=== PATIENT | male | born 1955 | race Caucasian/White ===

== ENCOUNTER 2019-02-17 16:07 | Emergency (ER) | payer MEDICAID ==
[2019-02-17] MEDS ORDERED: Cephalexin 250 MG Cap PO ONE (17:22)
[2019-02-17] MEDS ORDERED: Acetaminophen 500 MG Tab PO ONE (17:29)
--- NOTE | 2019-02-17 17:30 | EDM.PDOC ---
ED HPI GENERAL MEDICAL PROBLEM - General Chief Complaint: General Stated Complaint: POSSIBLE INFECTION Time Seen by Provider: 02/17/19 17:15 Source of Information: Reports: Patient, Old Records, RN History Limitations: Reports: No Limitations - History of Present Illness INITIAL COMMENTS - FREE TEXT/NARRATIVE: 63 yo male had recent back surgery in [place]. He was discharged on Monday from that hospital and his drain was removed at the time of his discharge. He has been running a tempt of about 99F over the weekend, thinks the area where his drain was is a little more tender than before and the drainage has possibly increased since discharge instead of slowing down. They called [place] today and were told to come to the ER. Has oxycodone for pain. Onset: Gradual Onset Date: 02/15/19 Duration: Day(s):, Getting Worse Location: Reports: Back (L low back) Quality: Reports: Other (tenderness) Severity: Moderate Improves with: Reports: Medication Worsens with: Reports: Other (touching area) Context: Reports: Other (see HPI) Associated Symptoms: Reports: No Other Symptoms Treatments COMMUNITY DEVELOPMENT DIRECTOR: Reports: Other (see below) (oxycodone) Lower Back Pain Score (Numeric/FACES): 7 - Related Data Allergies Allergy/AdvReac Type Severity Reaction Status Date / Time No Known Allergies Allergy Verified 11/09/18 10:51 Home Meds: Home Meds Cyclobenzaprine [Flexeril] 5 mg PO TID PRN 11/12/18 [History] Finasteride [Proscar] 5 mg PO DAILY 11/12/18 [History] Ibuprofen 800 mg PO TID PRN 11/12/18 [History] Pregabalin [Lyrica] 10 mg PO BID 11/12/18 [History] Tamsulosin HCl [Flomax] 0.4 mg PO DAILY 11/12/18 [History] Zolpidem [Ambien] 5 mg PO DAILY PRN 11/12/18 [History] oxyCODONE 10 mg PO TID 11/12/18 [History] Cephalexin [Keflex] 500 mg PO Q6H #30 capsule 02/17/19 [Rx] Past Medical History HEENT History: Reports: Impaired Vision - Infectious Disease History Infectious Disease History: Reports: Chicken Pox - Past Surgical History GI Surgical History: Reports: Appendectomy Musculoskeletal Surgical History: Reports: Shoulder Surgery, Other (See Below) Other Musculoskeletal Surgeries/Procedures:: wrist surgery and back fusion Social & Family History - Tobacco Use Smoking Status *Q: Never Smoker - Caffeine Use Caffeine Use: Reports: Coffee, Soda, Tea - Recreational Drug Use Recreational Drug Use: No ED ROS GENERAL - Review of Systems Review Of Systems: See Below Constitutional: Reports: No Symptoms Skin: Reports: Other (tenderness locally, has yellow drainage from wound site. ) . Denies: Erythema Neurological: Reports: No Symptoms Psychiatric: Reports: No Symptoms ED EXAM, GENERAL - Physical Exam Exam: See Below Exam Limited By: No Limitations General Appearance: Alert, WD/WN, No Apparent Distress Neurological: Alert, Oriented, CN II-XII Intact, Normal Cognition, No Motor/ Sensory Deficits Psychiatric: Normal Affect, Normal Mood Skin Exam: Warm, Dry, Normal Color, No Rash, Increased Warmth (slight increased warmth locally, no redness, serous yellow drainage from site. ) Course - Vital Signs Text/Narrative:: Wound culture obtained of surgical wound drainage. Last Recorded V/S: Last Vital Signs Temp 37.2 C 02/17/19 16:46 Pulse 81 02/17/19 16:46 Resp 14 02/17/19 16:46 BP 137/68 02/17/19 16:46 Pulse Ox 94 L 02/17/19 16:46 - Orders/Labs/Meds Orders: Active Orders 24 hr Category Date Time Status CULTURE WOUND + SMEAR [RM] Stat Lab 02/17/19 17:22 Ordered Meds: Medications Discontinued Medications Generic Name Dose Route Start Last Admin Trade Name Freq PRN Reason Stop Dose Admin Cephalexin 1,000 mg 02/17/19 17:22 Keflex PO 02/17/19 17:23 ONETIME ONE Departure - Departure Time of Disposition: 17:35 Disposition: Home, Self-Care 01 Condition: Fair Clinical Impression: Increased wound drainage - Discharge Information *PRESCRIPTION DRUG MONITORING PROGRAM REVIEWED*: No *COPY OF PRESCRIPTION DRUG MONITORING REPORT IN PATIENT [place]YATT: No Prescriptions: Cephalexin [Keflex] 500 mg PO Q6H #30 capsule Referrals: PCP,None [Primary Care Provider] - Additional Instructions: Take cephalexin as directed. Acetaminophen up to 1000 mg every 6 hrs for pain/ fever control. Change dressings as needed. F/U in the clinic on Monday to review your culture. Return or see your provider sooner if worse. - My Orders Last 24 Hours: My Active Orders 02/17/19 17:22 CULTURE WOUND + SMEAR [RM] Stat - Assessment/Plan Last 24 Hours: My Active Orders 02/17/19 17:22 CULTURE WOUND + SMEAR [RM] Stat
== END 2019-02-17 17:58 | disposition home or self-care (01) ==
LOC: JP.ED 16:07
DX: T81.89XA Other complications of procedures, not elsewhere classified, initial encounter (principal); Y83.8 Other surgical procedures as the cause of abnormal reaction of the patient, or of later complication, without mention of misadventure at the time of the procedure
CPT/HCPCS: 87070; 87205; 99283; A9270

== ENCOUNTER 2020-07-24 14:15 | Inpatient (IN) | payer MEDICARE, MEDICAID ==
[2020-07-24] MEDS ORDERED: Sodium Chloride 0.9% 10 ML Syringe FLUSH PRN (14:53)
[2020-07-24] MEDS ORDERED: Ondansetron 4 MG/2 ML SDV IV PRN (14:53)
[2020-07-24] MEDS ORDERED: Zolpidem 5 MG Tab PO PRN (14:57)
[2020-07-24] MEDS ORDERED: Piperacillin/Tazobactam 3.375 GM in Sodium Chloride 0.9% 50 ML IV SCH (15:00)
--- NOTE | 2020-07-24 15:03 | PCM.SN.2 ---
- Free Text/Narrative Note: START OF DOCTOR ELIMITino HISTORY AND PHYSICAL / CONSULTATION NOTE Chief Complaint: Direct admission for left thigh cellulitis/abscess History of Present Illness: The patient is a 65-year-old male who was admitted directly from the surgeon's office because of left thigh cellulitis/abscess. He indicates approximately 6 days prior to admission he developed what appeared to be irritation of his left lateral thigh. He states it resembled a spider bite. He states that he saw his primary care physician or provider 3 days prior to admission who referred him to the surgeon for further evaluation. On his day of July 24, 2020 the patient was seen by the surgeon referred for direct admission. The patient indicates that there is been green discharge from the nidus of the infection. He indicates that there is spreading erythema both proximally and distally of the left thigh. He admits to onset of fever and rigors. Denies nausea, vomiting, cough, wheeze, abdominal pain, diarrhea, myalgia, dyspnea. He presents for further evaluation Surgical History: Appendectomy, back fusion, right wrist surgery, left wrist surgery, left shoulder surgery, right shoulder surgery Family History: Cancer, stroke, diabetes, coronary artery disease, hypertension Social History: Tobacco: Former smoker Alcohol: Occasional Caffeine: Coffee, tea, cola Drugs: Past marijuana use. Denies any other drug use past or present Allergies: No known drug allergies Code Status: Full Pertinent Laboratory Results / Pertinent Radiology Results / Pertinent Diagnostic Results / Pertinent Vital Signs: Blood pressure 125/59, pulse 70, respiration 20, temperature 90.1 degrees, 9 6% room air. Labs have been ordered and are currently pending Physical Examination: General: -Alert -No acute distress -No dyspnea -No tachypnea -edentulous Head: -Atraumatic -Normocephalic Eyes: -Pupils equally round and reactive to light and accommodation -Extraocular muscles intact Neurological: -Cranial nerves II-XII intact Neck: -No jugular venous distention -No thyromegaly -No cervical lymphadenopathy Heart: -Regular rate -Regular rhythm -No murmurs -No gallops -No rubs Lungs: -No wheeze -No rhonchi -No rales Abdomen: -Normal bowel sounds in all four quadrants -No rebound -No guarding -No tenderness Extremities: -2/4 pulse in all four extremities -No clubbing -No cyanosis -No calf tenderness present bilaterally -Negative Homans sign bilaterally Musculoskeletal: -5/5 bilateral upper extremity strength -5/5 bilateral lower extremity strength -Sensorium of bilateral upper extremities are equal and intact -Sensorium of bilateral lower extremities are equal and intact Additional Details / Additional Findings / Exceptions / Miscellaneous: Inspection of the left lateral thigh demonstrates erythema both proximally and medially and circumferentially. There is a nidus of infection which is indurated. At the present time there is no drainage Assessment / Plan: Left lateral thigh cellulitis. Vancomycin 1 g IV every 12 hours to be dosed by pharmacy Po Zosyn 3.375 g IV every 6 hours. We will demarcate date the margin of erythema daily. Will check CT with IV contrast. If abscess is demonstrated, I will request that surgery evaluate the patient for possible I&D Neuropathy Insomnia BPH. Finasteride 5 mg p.o. daily plus Flomax 0.4 mg p.o. daily Muscle spasm Chronic pain. Oxycodone 10 mg p.o. 3 times daily Seasonal allergies COPD GERD DVT prophylaxis. Bilateral CD Disposition: END OF DOCTOR EMAMIS HISTORY AND PHYSICAL / CONSULTATION NOTE
[2020-07-24] MEDS ORDERED: Piperacillin/Tazobactam/Dext 3.375 GM in Premix Bag 1 BAG IV SCH (15:30)
[2020-07-24] MEDS: oxyCODONE 5 MG Tab PO SCH ×2 (15:40→21:14)
[2020-07-24] MEDS: Albuterol 0.083% 2.5 MG/3 ML Neb Soln INH PRN ×2 (15:41→19:58)
[2020-07-24] MEDS: Acetaminophen 325 MG Tab PO PRN ×2 (15:41→21:14)
[2020-07-24] MEDS ORDERED: Sodium Chloride 0.9% 1,000 ML IV SCH (16:00)
[2020-07-24] MEDS ORDERED: Sodium Chloride 0.9% 10 ML Syringe FLUSH ONE (16:28)
[2020-07-24] MEDS ORDERED: Sodium Chloride 0.9% 75 ML IV SCH (16:30)
[2020-07-24] MEDS ORDERED: Iopamidol 612 MG/ML 100 ML Bottle IV SCH (16:30)
[2020-07-24] MEDS ORDERED: Vancomycin 1.3 GM in Sodium Chloride 0.9% 250 ML IV ONE (17:00)
[2020-07-24] MEDS: Potassium Chloride 20 MEQ Tab.ER PO SCH ×2 (17:02→18:30)
[2020-07-24] MEDS: Ferrous Sulfate 325 MG Tab PO SCH (17:53)
--- NOTE | 2020-07-24 18:24 | CRLCT ---
INDICATION: L thigh abscess/cellulitis INDICATION : Cellulitis of the left TECHNIQUE : CT Scan of the pelvis and lower extremities hips to knees.. 100 cc nonionic contrast IV COMPARISON : No comparison FINDINGS: Soft tissues: Left lower extremity: Focal area of swelling with convex bulging of the skin located about 12 cm above the joint line of the left knee. Skin thickening present. Anterior lateral and posterior lateral collections of intermediate attenuation possibly complex fluid very well-circumscribed measuring 17 x 39 mm and 3 cm in the long axis. This fluid is located in the subcutaneous tissues. No gas within the tissues. Cellulitis is present which extends to the level of the proximal by 30 cm cephalad from the joint line of the knee. Osseous structures and joint spaces: Symmetric medial compartment degenerative joint narrowing. No suspicious osseous lesions or acute fractures. Miscellaneous: The included lower abdomen and pelvis shows ectasia and plaque formation of the distal abdominal aorta AP diameter 2.5 cm. No masses or adenopathy. Bladder and prostate unremarkable. No suspicious lymph node enlargement. Posterior interspinous lumbar stabilization/metallic fixation device L4-L5. IMPRESSION: 1. Lateral left thigh cellulitis with focal areas of subcutaneous fluid. Although this does not demonstrate significant rim enhancement early abscess may not be totally excluded but this is limited to the subcutaneous superficial tissues. No involvement of the muscle or deep fascia. This could be better assessed with localized ultrasound and for possible diagnostic percutaneous fluid sampling. 2. Atherosclerotic changes aorta and iliac bifurcation. 3. Posterior lumbar spine instrumentation L4-L5. Dictated by Luis Foote MD @ 07/24/2020 6:23:49 PM Please note that all CT scans at this facility use dose modulation, iterative reconstruction, and/or weight-based dosing when appropriate to reduce radiation dose to as low as reasonably achievable. Dictated by: Luis Foote MD @ 07/24/2020 18:23:57 (Electronically Signed)
[2020-07-24] MEDS ORDERED: oxyCODONE 5 MG Tab PO SCH (21:00)
[2020-07-24] MEDS ORDERED: OXYCODONE 10 MG PO SCH (21:00)
[2020-07-24] MEDS: Piperacillin/Tazobactam/Dext 3.375 GM in Premix Bag 1 BAG IV SCH (22:58)
[2020-07-25] MEDS: Piperacillin/Tazobactam/Dext 3.375 GM in Premix Bag 1 BAG IV SCH ×4 (04:07→22:51)
[2020-07-25] MEDS: Acetaminophen 325 MG Tab PO PRN ×3 (04:19→21:07)
[2020-07-25] MEDS: Cyclobenzaprine 10 MG Tab PO PRN (04:20)
[2020-07-25] MEDS: oxyCODONE 5 MG Tab PO SCH ×3 (08:54→21:07)
[2020-07-25] MEDS: Ascorbic Acid 500 MG Tab PO SCH (08:55)
[2020-07-25] MEDS: Tamsulosin 0.4 MG Cap.ER PO SCH (08:55)
[2020-07-25] MEDS: Ferrous Sulfate 325 MG Tab PO SCH ×2 (08:56→16:42)
[2020-07-25] MEDS: Finasteride 5 MG Tab PO SCH (08:56)
--- NOTE | 2020-07-25 09:58 | PCM.SN.2 ---
- Free Text/Narrative Note: START OF DOCTOR EMAMIS PROGRESS NOTE Subjective: Overnight the patient complains of occasional low-grade fever, rigors, and dyspnea. He denies cough, wheeze, abdominal pain, chest pain. He states that his left thigh pain has improved mildly however it is still present. I explained to the patient his current medical condition and plan of care and I have answered all of his questions Objective: General: -Alert -No acute distress -No dyspnea -No tachypnea Heart: -Regular rate -Regular rhythm -No murmurs -No gallops -No rubs Lungs: -Bilateral wheeze present -No rhonchi -No rales Abdomen: -Normal bowel sounds in all four quadrants -No rebound -No guarding -No tenderness Extremities: -2/4 pulse in all four extremities -No clubbing -No cyanosis -Inspection of the left lateral thigh demonstrates erythema, edema, warmth, and tenderness to palpation. The margin of erythema has receded compared to my examination on July 24, 2020. At the present time there is no drainage Additional Details / Additional Findings / Exceptions / Miscellaneous: Pertinent Laboratory Results / Pertinent Radiology Results / Pertinent D iagnostic Results / Pertinent Vital Signs: Patient saturating 90% on room air, white blood count 1.9, hemoglobin 9.7, AST 52, alkaline phosphatase 145 Assessment / Plan: Left lateral thigh cellulitis. Vancomycin 1 g IV every 12 hours to be dosed by pharmacy Po Zosyn 3.375 g IV every 6 hours. We will demarcate date the margin of erythema daily. CT of the left thigh did not demonstrate abscess, however I will request that surgery monitor the patient in case he may require I&D Neuropathy Insomnia BPH. Finasteride 5 mg p.o. daily plus Flomax 0.4 mg p.o. daily Muscle spasm Chronic pain. Oxycodone 10 mg p.o. 3 times daily Seasonal allergies COPD. DuoNeb every 4 hours while awake GERD Hypokalemia. Will monitor potassium levels intermittently and supplement as necessary Elevated alkaline phosphatase. We will monitor this periodically with LFTs. Iron deficiency anemia. Ferrous sulfate 325 mg p.o. twice daily plus vitamin C 500 mg p.o. daily DVT prophylaxis. Bilateral CD Disposition: Anticipate discharge in 72 to 96 hours END OF DOCTOR EMAMIS PROGRESS NOTE
[2020-07-25] MEDS: Albuterol/Ipratropium 3.0-0.5 MG/3 ML Neb Soln NEB SCH ×4 (10:43→22:49)
[2020-07-26] MEDS: Albuterol/Ipratropium 3.0-0.5 MG/3 ML Neb Soln NEB SCH ×6 (03:48→23:11)
[2020-07-26] MEDS: Piperacillin/Tazobactam/Dext 3.375 GM in Premix Bag 1 BAG IV SCH ×4 (04:00→22:32)
[2020-07-26] MEDS: Cyclobenzaprine 10 MG Tab PO PRN ×2 (04:05→11:05)
[2020-07-26] MEDS: Acetaminophen 325 MG Tab PO PRN ×3 (04:05→19:29)
--- NOTE | 2020-07-26 07:55 | PCM.SN.2 ---
- Free Text/Narrative Note: START OF DOCTOR ROCÍO PROGRESS NOTE Subjective: The patient complains of pain of the left thigh. He states may have improved somewhat compared to my encounter with him on July 25, 2020. He currently rates his left thigh pain as a 5 out of 10. Overnight he denies fever, rigors, nausea, vomiting, dyspnea. He states that his head is being occasional cough productive of clear sputum and occasional wheeze. I explained to the patient his current medical condition and plan of care and have answered all of his questions Objective: General: -Alert -No acute distress -No dyspnea -No tachypnea Heart: -Regular rate -Regular rhythm -No murmurs -No gallops -No rubs Lungs: -Bilateral wheeze present -No rhonchi -No rales Abdomen: -Normal bowel sounds in all four quadrants -No rebound -No guarding -No tenderness Extremities: -2/4 pulse in all four extremities -No clubbing -No cyanosis -Inspection of the left lateral thigh demonstrates erythema, edema, warmth, and tenderness to palpation. The margin of erythema has receded compared to my examination on July. At the present time there is no drainage Additional Details / Additional Findings / Exceptions / Miscellaneous: Pertinent Laboratory Results / Pertinent Radiology Results / Pertinent Diagnostic Results / Pertinent Vital Signs: Vital signs stable however patient had temperature max overnight of 100.3 degrees. Hemoglobin 10.9, AST 44, ALT 143 Assessment / Plan: Left lateral thigh cellulitis. Vancomycin 1 g IV every 12 hours to be dosed by pharmacy Po Zosyn 3.375 g IV every 6 hours. We will demarcate date the margin of erythema daily. CT of the left thigh did not demonstrate abscess, however I will request that surgery monitor the patient in case he may require I&D in the case had an abscess should form Neuropathy Insomnia BPH. Finasteride 5 mg p.o. daily plus Flomax 0.4 mg p.o. daily Muscle spasm Chronic pain. Oxycodone 10 mg p.o. 3 times daily Seasonal allergies COPD. DuoNeb every 4 hours while awake GERD Hypokalemia. Will monitor potassium levels intermittently and supplement as necessary Elevated alkaline phosphatase. We will monitor this periodically with LFTs. Iron deficiency anemia. Ferrous sulfate 325 mg p.o. twice daily plus vitamin C 500 mg p.o. daily DVT prophylaxis. Bilateral CD Disposition: Anticipate discharge in 72 to 96 hours END OF DOCTOR EMAMIS PROGRESS NOTE
[2020-07-26] MEDS: Finasteride 5 MG Tab PO SCH (08:02)
[2020-07-26] MEDS: Ascorbic Acid 500 MG Tab PO SCH (08:02)
[2020-07-26] MEDS: Tamsulosin 0.4 MG Cap.ER PO SCH (08:02)
[2020-07-26] MEDS: Ferrous Sulfate 325 MG Tab PO SCH ×2 (08:02→16:54)
[2020-07-26] MEDS: oxyCODONE 5 MG Tab PO SCH ×3 (08:03→21:03)
[2020-07-27] MEDS: Albuterol/Ipratropium 3.0-0.5 MG/3 ML Neb Soln NEB SCH ×5 (02:37→20:52)
[2020-07-27] MEDS: Acetaminophen 325 MG Tab PO PRN ×2 (02:38→19:37)
[2020-07-27] MEDS: Cyclobenzaprine 10 MG Tab PO PRN ×2 (02:42→19:37)
[2020-07-27] MEDS: HYDROmorphone 0.5 MG/0.5 ML Syringe IVPUSH PRN ×3 (03:43→11:42)
[2020-07-27] MEDS: Piperacillin/Tazobactam/Dext 3.375 GM in Premix Bag 1 BAG IV SCH ×4 (05:12→22:09)
[2020-07-27] MEDS: Ferrous Sulfate 325 MG Tab PO SCH ×2 (07:17→16:10)
[2020-07-27] MEDS ORDERED: Calcium Carbonate 500 MG Tab.Chew PO PRN (07:29)
[2020-07-27] MEDS: Calcium Carbonate 500 MG Tab.Chew PO PRN ×2 (08:49→17:00)
[2020-07-27] MEDS: Finasteride 5 MG Tab PO SCH (08:49)
[2020-07-27] MEDS: Tamsulosin 0.4 MG Cap.ER PO SCH (08:49)
[2020-07-27] MEDS: Ascorbic Acid 500 MG Tab PO SCH (08:49)
[2020-07-27] MEDS: oxyCODONE 5 MG Tab PO SCH ×3 (08:53→20:53)
--- NOTE | 2020-07-27 10:18 | PCM.PN ---
- General Info Date of Service: 07/27/20 Subjective Update: Patient reports ongoing difficulty with pain involving the left thigh. He describes a moderate to moderately severe pressure-like pain. It is better than at the time of admission but still fairly significant. He and his significant other think that the leg is more swollen and more discolored today than it has been. He did not have any fevers overnight. He does feel short of breath compared to baseline and is audibly wheezing. He did clean his chicken coop recently. Functional Status: Denies: Pain Controlled - Review of Systems General: Denies: Fever Pulmonary: Reports: Shortness of Breath Musculoskeletal: Reports: Leg Pain (left thigh) - Patient Data Vitals - Most Recent: Last Vital Signs Temp 35.3 C L 07/27/20 07:00 Pulse 75 07/27/20 07:00 Resp 16 07/27/20 07:00 BP 106/71 07/27/20 07:00 Pulse Ox 90 L 07/27/20 07:00 Weight - Most Recent: 65.317 kg I&O - Last 24 Hours: Intake & Output 07/26/20 07/27/20 07/27/20 22:59 06:59 14:59 Intake Total 50 900 Output Total 350 575 Balance -300 325 Lab Results Last 24 Hours: Laboratory Results - last 24 hr 07/27/20 Range/Units 04:30 Creatinine 0.9 (0.8-1.3) mg/dL Est Cr Clr Drug Dosing 69.43 mL/min Estimated GFR (MDRD) > 60 (>60) Vancomycin Trough 15.8 (10.0-20.0) ug/mL Lee Results Last 24 Hours: Microbiology 07/24/20 22:58 Stool Occult Blood (LEE) - Final Stool / Feces NEGATIVE OCCULT BLOOD REFERENCE RANGE: NEGATIVE Med Orders - Current: Current Medications Acetaminophen (Acetaminophen 325 Mg Tab) 650 mg PO Q4H PRN PRN Reason: Pain (Mild 1-3)/fever Last Admin: 07/27/20 02:38 Dose: 650 mg Documented by: Albuterol (Albuterol 0.083% 2.5 Mg/3 Ml Neb Soln) 2.5 mg INH Q4H PRN PRN Reason: Dyspnea Last Admin: 07/24/20 19:58 Dose: 2.5 mg Documented by: Albuterol/Ipratropium (Albuterol/Ipratropium 3.0-0.5 Mg/3 Ml Neb Soln) 3 ml NEB Q4H [facility] Last Admin: 07/27/20 07:12 Dose: 3 ml Documented by: Ascorbic Acid (Ascorbic Acid 500 Mg Tab) 500 mg PO DAILY [facility] Last Admin: 07/27/20 08:49 Dose: 500 mg Documented by: Calcium Carbonate/Glycine (Calcium Carbonate 500 Mg Tab.Chew) 1,000 mg PO Q2H PRN PRN Reason: Indigestion Last Admin: 07/27/20 08:49 Dose: 1,000 mg Documented by: Cyclobenzaprine HCl (Cyclobenzaprine 10 Mg Tab) 5 mg PO TID PRN PRN Reason: Spasms Last Admin: 07/27/20 02:42 Dose: 5 mg Documented by: Ferrous Sulfate (Ferrous Sulfate 325 Mg Tab) 325 mg PO BIDMEALS [facility] Last Admin: 07/27/20 07:17 Dose: 325 mg Documented by: Finasteride (Finasteride 5 Mg Tab) 5 mg PO DAILY [facility] Last Admin: 07/27/20 08:49 Dose: 5 mg Documented by: Hydromorphone HCl (Hydromorphone 0.5 Mg/0.5 Ml Syringe) 0.5 - 1 mg IVPUSH Q3H PRN PRN Reason: Pain Last Admin: 07/27/20 07:15 Dose: 0.5 mg Documented by: Vancomycin HCl 1 gm/ Sodium (Chloride) 250 mls @ 167 mls/hr IV Q12H [facility] Last Admin: 07/27/20 05:45 Dose: 167 mls/hr Documented by: Piperacillin/Tazobactam/ (Dextrose 3.375 gm/ Premix) 50 mls @ 100 mls/hr IV Q6H [facility] Last Admin: 07/27/20 05:12 Dose: 100 mls/hr Documented by: Ondansetron HCl (Ondansetron 4 Mg/2 Ml Sdv) 4 mg IV Q4H PRN PRN Reason: Nausea/Vomiting Oxycodone HCl (Oxycodone 5 Mg Tab) 10 mg PO TID [facility] Last Admin: 07/27/20 08:53 Dose: 10 mg Documented by: Sodium Chloride (Sodium Chloride 0.9% 10 Ml Syringe) 10 ml FLUSH ASDIRECTED PRN PRN Reason: Keep Vein Open Tamsulosin HCl (Tamsulosin 0.4 Mg Cap.Er) 0.4 mg PO DAILY [facility] Last Admin: 07/27/20 08:49 Dose: 0.4 mg Documented by: Zolpidem Tartrate (Zolpidem 5 Mg Tab) 5 mg PO BEDTIME PRN PRN Reason: Insomnia Discontinued Medications Piperacillin/Tazobactam/ (Dextrose 3.375 gm/ Premix) 50 mls @ 100 mls/hr IV Q6H [facility] Stop: 07/24/20 18:00 Last Admin: 07/24/20 17:02 Dose: 100 mls/hr Documented by: Sodium Chloride (Normal Saline) 1,000 mls @ 75 mls/hr IV ASDIRECTED [facility] Last Admin: 07/24/20 17:54 Dose: 75 mls/hr Documented by: Vancomycin HCl 1.3 gm/ Sodium (Chloride) 250 mls @ 167 mls/hr IV ONETIME ONE Stop: 07/24/20 18:29 Last Admin: 07/24/20 17:54 Dose: 167 mls/hr Documented by: Sodium Chloride (Normal Saline) 75 mls @ 3 mls/sec IV ASDIRECTED [facility] Stop: 07/24/20 16:31 Last Admin: 07/24/20 16:54 Dose: 3 mls/sec Documented by: Iopamidol (Iopamidol 612 Mg/Ml 100 Ml Bottle) 100 ml IV . DIRECTED [facility] Stop: 07/24/20 16:31 Last Admin: 07/24/20 16:54 Dose: 100 ml Documented by: Potassium Chloride (Potassium Chloride 20 Meq Tab.Er) 40 meq PO Q2H [facility] Stop: 07/24/20 18:01 Last Admin: 07/24/20 18:30 Dose: 40 meq Documented by: Sodium Chloride (Sodium Chloride 0.9% 10 Ml Syringe) 10 ml FLUSH ONETIME ONE Stop: 07/24/20 16:29 Last Admin: 07/24/20 16:54 Dose: 10 ml Documented by: - Exam Quality Assessment: No: Supplemental Oxygen General: Alert, Oriented, Cooperative, No Acute Distress Lungs: Normal Respiratory Effort, Rhonchi (diffuse both lungs), Wheezing (mild exp bilaterally ) Cardiovascular: Regular Rate, Regular Rhythm GI/Abdominal Exam: Soft, No Distention Extremities: No Pedal Edema. No: Joint Swelling Skin: Warm, Dry, Rash (erythema within marked boundaries left thigh. two areas of fluctuance in the center of the marked area, proximal area 4x10 cm and distal one 4x4 cm. ) Psy/Mental Status: Alert, Normal Affect - Patient Data Lab Results Last 24 hrs: Laboratory Results - last 24 hr 07/27/20 Range/Units 04:30 Creatinine 0.9 (0.8-1.3) mg/dL Est Cr Clr Drug Dosing 69.43 mL/min Estimated GFR (MDRD) > 60 (>60) Vancomycin Trough 15.8 (10.0-20.0) ug/mL Result Diagrams: 07/26/20 04:45 07/27/20 04:30 Lee Results Last 24 hrs: Microbiology 07/24/20 22:58 Stool Occult Blood (LEE) - Final Stool / Feces NEGATIVE OCCULT BLOOD REFERENCE RANGE: NEGATIVE Sepsis Event Note - Evaluation Sepsis Screening Result: No Definite Risk - Focused Exam Vital Signs: Vital Signs Temp Pulse Resp BP Pulse Ox 07/27/20 07:00 35.3 C L 75 16 106/71 90 L 07/27/20 03:55 37.1 C 73 18 115/57 L 95 07/26/20 22:19 37.5 C 78 16 132/72 95 - Problem List Review Problem List Initiated/Reviewed/Updated: Yes - My Orders Last 24 Hours: My Active Orders 07/27/20 07:30 Calcium Carbonate [Tums] 1,000 mg PO Q2H PRN 07/27/20 10:12 CXR [Chest 2V] [CR] Routine 07/27/20 10:14 Notify Provider Consults [RC] ASDIRECTED Consult to Physician [CONS] Routine 07/27/20 16:00 Albuterol/Ipratropium [DuoNeb 3.0-0.5 MG/3 ML] 3 ml NEB QID 07/27/20 21:00 Lactobacillus Rhamnosus GG [Culturelle] 1 cap PO BID 07/28/20 05:00 BASIC METABOLIC PANEL,BMP [CHEM] Timed CBC W/O DIFF,HEMOGRAM [HEME] Timed (1) - Plan Plan:: ASSESSMENT AND PLAN - Left thigh abscess and cellulitis-patient thinks he had an insect bite leading to the infection about 1 week ago. Area of fluctuance quite apparent today despite negative imaging over the weekend. No evidence for sepsis at this time. -Surgical consultation for incision and debridement of left thigh abscess -Continue vancomycin and Pip/Tazo -Follow-up cultures and narrow antibiotics as able -Symptomatic management of pain -Wound care following incision and debridement Increased dyspnea, history of COPD-patient has coarse breath sounds. He is not hypoxic but does feel short of breath. Could be bronchitis, either bacterial or environmental. -Chest x-ray -Consider steroids plus or minus pulmonary antibiotics -Continue inhalers and nebulizers Chronic back pain-stable. -Continue home medications Maintenance issues - -DVT prophylaxis-mechanical -GI prophylaxis-not indicated -Nutrition-regular Disposition -I anticipate discharge home after the hospital stay Fermín Talbot M.D.
[2020-07-27] MEDS ORDERED: Lidocaine 1% with EPINEPHrine 1:100,000 50 ML MDV INFILT ONE (10:50)
--- NOTE | 2020-07-27 13:36 | OR ---
DATE OF PROCEDURE: 07/27/2020 SURGEON: Daljit Smith MD PROCEDURE: Incision and drainage of left thigh abscess. FINDINGS: Left thigh abscess, approximately 30 mL in volume. COMPLICATION: None. WELL SERVICE DERRICK WORKER: None. ANESTHESIA: Local. RISKS: Risks, benefits, alternatives, and limitations including, but not limited to infection, bleeding, sepsis, chronic wound, chronic pain, and other risks not listed here were explained to the patient who wished to proceed. PROCEDURE IN DETAIL: The patient was placed in supine position. The area was prepped and draped. Betadine towels were used to square off. This was then anesthetized with 1% lidocaine. A single debbie was created in the skin. Fozia clamp was used to enlarge this and a moderate amount of purulent material was noted. This was cultured. This was thoroughly irrigated with normal saline. Quarter-inch packing was placed. Nurse was instructed to remove it in 48 hours. The patient tolerated the procedure well. Daljit Smith MD /[id number]
--- NOTE | 2020-07-27 14:14 | CR ---
CHEST: 2 view CLINICAL HISTORY:Wheezing COMPARISON:None FINDINGS: Heart size and pulmonary vascular are normal. There are atherosclerotic changes in the aorta.. No infiltrate, effusion or pneumothorax is seen. There are scattered small well-circumscribed nodules in both lungs. Impression: Scattered small pulmonary nodules bilaterally. These likely represent granulomata but noncontrast CT chest is recommended if these have not been previously documented.
--- NOTE | 2020-07-27 15:17 | CT ---
Chest wo Cont CLINICAL HISTORY: Pulmonary nodules TECHNIQUE: Thin section axial contiguous tomographic sections were taken through the chest without IV iodinated contrast administration. Coronal and sagittal images were reconstructed. Auto dosage reduction and iterative reconstruction techniques employed. FINDINGS: There is minimal scarring in the right apex. There are innumerable scattered densely calcified pulmonary nodules in both lung haley, greater on the right. These are consistent with multiple granulomata. There are a few scattered groundglass opacities in the upper lobes. No mediastinal mass or suspicious lymphadenopathy is identified. There are no pleural effusions. Scans in the upper abdomen show no mass or adenopathy. There are atherosclerotic changes in the aorta. IMPRESSION: Numerous small granulomata bilaterally No suspicious pulmonary nodules No mass or adenopathy There are a few scattered groundglass opacities in both upper lobes. This can be seen with pneumonitis Scattered pleural parenchymal scarring
[2020-07-27] MEDS ORDERED: Albuterol/Ipratropium 3.0-0.5 MG/3 ML Neb Soln NEB SCH (16:00)
[2020-07-27] MEDS: Albuterol 0.083% 2.5 MG/3 ML Neb Soln INH PRN (19:37)
[2020-07-27] MEDS: Lactobacillus Rhamnosus GG (Probiotic) Cap PO SCH (20:52)
[2020-07-28] MEDS: Piperacillin/Tazobactam/Dext 3.375 GM in Premix Bag 1 BAG IV SCH ×2 (04:14→11:27)
[2020-07-28] MEDS: Albuterol/Ipratropium 3.0-0.5 MG/3 ML Neb Soln NEB SCH ×4 (07:21→21:30)
[2020-07-28] MEDS: Ferrous Sulfate 325 MG Tab PO SCH ×2 (08:18→17:02)
[2020-07-28] MEDS: Finasteride 5 MG Tab PO SCH (08:18)
[2020-07-28] MEDS: Tamsulosin 0.4 MG Cap.ER PO SCH (08:18)
[2020-07-28] MEDS: Lactobacillus Rhamnosus GG (Probiotic) Cap PO SCH ×2 (08:18→21:30)
[2020-07-28] MEDS: Ascorbic Acid 500 MG Tab PO SCH (08:18)
[2020-07-28] MEDS: oxyCODONE 5 MG Tab PO SCH ×3 (08:24→21:30)
--- NOTE | 2020-07-28 11:35 | PCM.PN ---
- General Info Date of Service: 07/28/20 Subjective Update: There were no acute events overnight. Patient did not have any fevers. Pain in his left thigh has improved since the incision and debridement yesterday. Chron ic back pain is stable. Shortness of breath has improved and he is wheezing less today. Wound culture from yesterday is growing a gram-positive cocci with identification pending. White count is normal. Functional Status: Reports: Pain Controlled, Tolerating Diet - Review of Systems General: Denies: Fever Musculoskeletal: Reports: Leg Pain - Patient Data Vitals - Most Recent: Last Vital Signs Temp 36.6 C 07/28/20 11:27 Pulse 77 07/28/20 11:27 Resp 18 07/28/20 11:27 BP 136/71 07/28/20 11:27 Pulse Ox 91 L 07/28/20 11:27 Weight - Most Recent: 65.317 kg I&O - Last 24 Hours: Intake & Output 07/27/20 07/28/20 07/28/20 22:59 06:59 14:59 Intake Total 480 1300 300 Output Total 750 550 Balance -270 1300 -250 Lab Results Last 24 Hours: Laboratory Results - last 24 hr 07/28/20 07/28/20 Range/Units 04:05 04:05 WBC 8.5 (4.5-11.0) K/uL RBC 3.70 L (4.30-5.90) M/uL Hgb 10.5 L (12.0-15.0) g/dL Hct 33.3 L (40.0-54.0) % MCV 90 (80-98) fL MCH 28 (27-31) pg MCHC 32 (32-36) % Plt Count 304 (150-400) K/uL Sodium 143 (140-148) mmol/L Potassium 4.2 (3.6-5.2) mmol/L Chloride 103 (100-108) mmol/L Carbon Dioxide 27 (21-32) mmol/L Anion Gap 13.1 (5.0-14.0) mmol/L BUN 9 (7-18) mg/dL Creatinine 0.9 (0.8-1.3) mg/dL Est Cr Clr Drug Dosing 69.90 mL/min Estimated GFR (MDRD) > 60 (>60) Glucose 96 (74-106) mg/dL Calcium 9.0 (8.5-10.1) mg/dL Lee Results Last 24 Hours: Microbiology 07/27/20 11:40 Gram Stain - Final Leg, Left Wound Culture - Preliminary Med Orders - Current: Current Medications Acetaminophen (Acetaminophen 325 Mg Tab) 650 mg PO Q4H PRN PRN Reason: Pain (Mild 1-3)/fever Last Admin: 07/27/20 19:37 Dose: 650 mg Documented by: Albuterol (Albuterol 0.083% 2.5 Mg/3 Ml Neb Soln) 2.5 mg INH Q4H PRN PRN Reason: Dyspnea Last Admin: 07/27/20 19:37 Dose: 2.5 mg Documented by: Albuterol/Ipratropium (Albuterol/Ipratropium 3.0-0.5 Mg/3 Ml Neb Soln) 3 ml NEB QIDRT [facility] Last Admin: 07/28/20 11:17 Dose: 3 ml Documented by: Ascorbic Acid (Ascorbic Acid 500 Mg Tab) 500 mg PO DAILY [facility] Last Admin: 07/28/20 08:18 Dose: 500 mg Documented by: Calcium Carbonate/Glycine (Calcium Carbonate 500 Mg Tab.Chew) 1,000 mg PO Q2H PRN PRN Reason: Indigestion Last Admin: 07/27/20 17:00 Dose: 1,000 mg Documented by: Cyclobenzaprine HCl (Cyclobenzaprine 10 Mg Tab) 5 mg PO TID PRN PRN Reason: Spasms Last Admin: 07/27/20 19:37 Dose: 5 mg Documented by: Ferrous Sulfate (Ferrous Sulfate 325 Mg Tab) 325 mg PO BIDMEALS [facility] Last Admin: 07/28/20 08:18 Dose: 325 mg Documented by: Finasteride (Finasteride 5 Mg Tab) 5 mg PO DAILY [facility] Last Admin: 07/28/20 08:18 Dose: 5 mg Documented by: Hydromorphone HCl (Hydromorphone 0.5 Mg/0.5 Ml Syringe) 0.5 - 1 mg IVPUSH Q3H PRN PRN Reason: Pain Last Admin: 07/27/20 11:42 Dose: 1 mg Documented by: Vancomycin HCl 1 gm/ Sodium (Chloride) 250 mls @ 167 mls/hr IV Q12H [facility] Last Admin: 07/28/20 05:16 Dose: 167 mls/hr Documented by: Lactobacillus Rhamnosus (Lactobacillus Rhamnosus Gg (Probiotic) Cap) 1 cap PO BID [facility] Last Admin: 07/28/20 08:18 Dose: 1 cap Documented by: Ondansetron HCl (Ondansetron 4 Mg/2 Ml Sdv) 4 mg IV Q4H PRN PRN Reason: Nausea/Vomiting Oxycodone HCl (Oxycodone 5 Mg Tab) 10 mg PO TID [facility] Last Admin: 07/28/20 08:24 Dose: 10 mg Documented by: Sodium Chloride (Sodium Chloride 0.9% 10 Ml Syringe) 10 ml FLUSH ASDIRECTED PRN PRN Reason: Keep Vein Open Tamsulosin HCl (Tamsulosin 0.4 Mg Cap.Er) 0.4 mg PO DAILY [facility] Last Admin: 07/28/20 08:18 Dose: 0.4 mg Documented by: Zolpidem Tartrate (Zolpidem 5 Mg Tab) 5 mg PO BEDTIME PRN PRN Reason: Insomnia Discontinued Medications Albuterol/Ipratropium (Albuterol/Ipratropium 3.0-0.5 Mg/3 Ml Neb Soln) 3 ml NEB Q4H [facility] Last Admin: 07/27/20 07:12 Dose: 3 ml Documented by: Piperacillin/Tazobactam/ (Dextrose 3.375 gm/ Premix) 50 mls @ 100 mls/hr IV Q6H [facility] Stop: 07/24/20 18:00 Last Admin: 07/24/20 17:02 Dose: 100 mls/hr Documented by: Sodium Chloride (Normal Saline) 1,000 mls @ 75 mls/hr IV ASDIRECTED [facility] Last Admin: 07/24/20 17:54 Dose: 75 mls/hr Documented by: Vancomycin HCl 1.3 gm/ Sodium (Chloride) 250 mls @ 167 mls/hr IV ONETIME ONE Stop: 07/24/20 18:29 Last Admin: 07/24/20 17:54 Dose: 167 mls/hr Documented by: Sodium Chloride (Normal Saline) 75 mls @ 3 mls/sec IV ASDIRECTED [facility] Stop: 07/24/20 16:31 Last Admin: 07/24/20 16:54 Dose: 3 mls/sec Documented by: Piperacillin/Tazobactam/ (Dextrose 3.375 gm/ Premix) 50 mls @ 100 mls/hr IV Q6H [facility] Last Admin: 07/28/20 11:27 Dose: 100 mls/hr Documented by: Iopamidol (Iopamidol 612 Mg/Ml 100 Ml Bottle) 100 ml IV . DIRECTED [facility] Stop: 07/24/20 16:31 Last Admin: 07/24/20 16:54 Dose: 100 ml Documented by: Lidocaine/Epinephrine (Lidocaine 1% With Epinephrine 1:100,000 50 Ml Mdv) 10 ml INFILT ONETIME ONE Stop: 07/27/20 10:51 Last Admin: 07/27/20 11:43 Dose: 10 ml Documented by: Potassium Chloride (Potassium Chloride 20 Meq Tab.Er) 40 meq PO Q2H [facility] Stop: 07/24/20 18:01 Last Admin: 07/24/20 18:30 Dose: 40 meq Documented by: Sodium Chloride (Sodium Chloride 0.9% 10 Ml Syringe) 10 ml FLUSH ONETIME ONE Stop: 07/24/20 16:29 Last Admin: 07/24/20 16:54 Dose: 10 ml Documented by: - Exam Quality Assessment: No: Supplemental Oxygen General: Alert, Oriented, Cooperative, No Acute Distress Lungs: Normal Respiratory Effort, Rhonchi (mild diffuse), Wheezing (mild lower lungs bilaterally ) Cardiovascular: Regular Rate, Regular Rhythm Extremities: No Pedal Edema, Increased Warmth (left thigh) Skin: Warm, Dry, Rash (erythema within marked boundaries left thigh ) Wound/Incisions: Drainage (purulent drainage around wick in thigh wound ), Erythema Psy/Mental Status: Alert, Normal Affect - Patient Data Lab Results Last 24 hrs: Laboratory Results - last 24 hr 07/28/20 07/28/20 Range/Units 04:05 04:05 WBC 8.5 (4.5-11.0) K/uL RBC 3.70 L (4.30-5.90) M/uL Hgb 10.5 L (12.0-15.0) g/dL Hct 33.3 L (40.0-54.0) % MCV 90 (80-98) fL MCH 28 (27-31) pg MCHC 32 (32-36) % Plt Count 304 (150-400) K/uL Sodium 143 (140-148) mmol/L Potassium 4.2 (3.6-5.2) mmol/L Chloride 103 (100-108) mmol/L Carbon Dioxide 27 (21-32) mmol/L Anion Gap 13.1 (5.0-14.0) mmol/L BUN 9 (7-18) mg/dL Creatinine 0.9 (0.8-1.3) mg/dL Est Cr Clr Drug Dosing 69.90 mL/min Estimated GFR (MDRD) > 60 (>60) Glucose 96 (74-106) mg/dL Calcium 9.0 (8.5-10.1) mg/dL Result Diagrams: 07/28/20 04:05 07/28/20 04:05 Lee Results Last 24 hrs: Microbiology 07/27/20 11:40 Gram Stain - Final Leg, Left Wound Culture - Preliminary Sepsis Event Note - Evaluation Sepsis Screening Result: No Definite Risk - Focused Exam Vital Signs: Vital Signs Temp Pulse Resp BP Pulse Ox 07/28/20 11:27 36.6 C 77 18 136/71 91 L 07/28/20 11:17 82 07/28/20 08:00 35.8 C L 81 18 144/74 H 95 07/28/20 04:00 37.2 C 73 18 140/63 91 L - Problem List Review Problem List Initiated/Reviewed/Updated: Yes - My Orders Last 24 Hours: My Active Orders 07/27/20 11:00 Albuterol/Ipratropium [DuoNeb 3.0-0.5 MG/3 ML] 3 ml NEB QIDRT 07/27/20 21:00 Lactobacillus Rhamnosus GG [Culturelle] 1 cap PO BID 07/28/20 16:00 Clindamycin Phosphate [Cleocin] 600 mg Sodium Chloride 0.9% [Normal Saline] 50 ml IV Q8H - Plan Plan:: ASSESSMENT AND PLAN - Left thigh abscess and cellulitis-patient thinks he had an insect bite leading to the infection about 1 week ago. Status post incision and debridement yesterday. Gram stain unremarkable but culture is growing a gram-positive cocci. Pain is better. No fevers. We did express a fair amount of purulent material today at the bedside. -Continue vancomycin -Stop Pip/Tazo -Start clindamycin -Follow-up cultures and narrow antibiotics as able -Symptomatic management of pain -Wound care following incision and debridement Increased dyspnea, history of COPD-patient has coarse breath sounds. He is not hypoxic but does feel short of breath. Suspect environmental pneumonitis/bronchitis. Improving with nebulizer therapy. Patient does not want to try steroids at this time. -Consider steroids plus or minus pulmonary antibiotics -Continue inhalers and nebulizers Chronic back pain-stable. -Continue home medications Maintenance issues - -DVT prophylaxis-mechanical -GI prophylaxis-not indicated -Nutrition-regular Disposition -I anticipate discharge home after the hospital stay Fermín Talbot M.D.
[2020-07-28] MEDS: HYDROmorphone 0.5 MG/0.5 ML Syringe IVPUSH PRN (21:07)
[2020-07-29] MEDS: HYDROmorphone 0.5 MG/0.5 ML Syringe IVPUSH PRN (04:33)
[2020-07-29] MEDS: Albuterol/Ipratropium 3.0-0.5 MG/3 ML Neb Soln NEB SCH ×4 (07:26→21:31)
[2020-07-29] MEDS: Acetaminophen 325 MG Tab PO PRN ×2 (07:42→21:32)
[2020-07-29] MEDS: Ferrous Sulfate 325 MG Tab PO SCH ×2 (07:43→16:16)
[2020-07-29] MEDS: oxyCODONE 5 MG Tab PO SCH ×3 (09:38→21:33)
[2020-07-29] MEDS: Lactobacillus Rhamnosus GG (Probiotic) Cap PO SCH ×2 (09:38→21:32)
[2020-07-29] MEDS: Ascorbic Acid 500 MG Tab PO SCH (09:38)
[2020-07-29] MEDS: Tamsulosin 0.4 MG Cap.ER PO SCH (09:38)
[2020-07-29] MEDS: Finasteride 5 MG Tab PO SCH (09:38)
--- NOTE | 2020-07-29 12:37 | PCM.PN ---
- General Info Date of Service: 07/29/20 Subjective Update: No acute events overnight. Pain is stable to may be slightly better but still fairly significant. Dressing had to be changed because of significant drainage from the incision site. No fevers overnight. Shortness of breath is better again today. Lots of questions about MRSA which was grown out in the culture. I was able to express a fair amount of purulent material from the incision site again today. Functional Status: Reports: Pain Controlled, Tolerating Diet - Review of Systems General: Denies: Fever Musculoskeletal: Reports: Leg Pain (left thigh ) - Patient Data Vitals - Most Recent: Last Vital Signs Temp 37.0 C 07/29/20 10:40 Pulse 72 07/29/20 11:10 Resp 18 07/29/20 10:40 BP 129/69 07/29/20 10:40 Pulse Ox 92 L 07/29/20 10:40 Weight - Most Recent: 65.317 kg I&O - Last 24 Hours: Intake & Output 07/28/20 07/29/20 07/29/20 22:59 06:59 14:59 Intake Total 1375 300 Output Total 350 1825 Balance 1025 -1525 Lee Results Last 24 Hours: Microbiology 07/27/20 11:40 Gram Stain - Final Leg, Left Wound Culture - Final (Mrsa) Staphylococcus Aureus Med Orders - Current: Current Medications Acetaminophen (Acetaminophen 325 Mg Tab) 650 mg PO Q4H PRN PRN Reason: Pain (Mild 1-3)/fever Last Admin: 07/29/20 07:42 Dose: 650 mg Documented by: Albuterol (Albuterol 0.083% 2.5 Mg/3 Ml Neb Soln) 2.5 mg INH Q4H PRN PRN Reason: Dyspnea Last Admin: 07/27/20 19:37 Dose: 2.5 mg Documented by: Albuterol/Ipratropium (Albuterol/Ipratropium 3.0-0.5 Mg/3 Ml Neb Soln) 3 ml NEB QIDRT [facility] Last Admin: 07/29/20 11:07 Dose: 3 ml Documented by: Ascorbic Acid (Ascorbic Acid 500 Mg Tab) 500 mg PO DAILY [facility] Last Admin: 07/29/20 09:38 Dose: 500 mg Documented by: Calcium Carbonate/Glycine (Calcium Carbonate 500 Mg Tab.Chew) 1,000 mg PO Q2H PRN PRN Reason: Indigestion Last Admin: 07/27/20 17:00 Dose: 1,000 mg Documented by: Cyclobenzaprine HCl (Cyclobenzaprine 10 Mg Tab) 5 mg PO TID PRN PRN Reason: Spasms Last Admin: 07/27/20 19:37 Dose: 5 mg Documented by: Ferrous Sulfate (Ferrous Sulfate 325 Mg Tab) 325 mg PO BIDMEALS [facility] Last Admin: 07/29/20 07:43 Dose: 325 mg Documented by: Finasteride (Finasteride 5 Mg Tab) 5 mg PO DAILY [facility] Last Admin: 07/29/20 09:38 Dose: 5 mg Documented by: Hydromorphone HCl (Hydromorphone 0.5 Mg/0.5 Ml Syringe) 0.5 - 1 mg IVPUSH Q3H PRN PRN Reason: Pain Last Admin: 07/29/20 04:33 Dose: 0.5 mg Documented by: Clindamycin Phosphate 600 mg/ (Sodium Chloride) 54 mls @ 100 mls/hr IV Q8H [facility] Last Admin: 07/29/20 07:50 Dose: 100 mls/hr Documented by: Lactobacillus Rhamnosus (Lactobacillus Rhamnosus Gg (Probiotic) Cap) 1 cap PO BID [facility] Last Admin: 07/29/20 09:38 Dose: 1 cap Documented by: Ondansetron HCl (Ondansetron 4 Mg/2 Ml Sdv) 4 mg IV Q4H PRN PRN Reason: Nausea/Vomiting Oxycodone HCl (Oxycodone 5 Mg Tab) 10 mg PO TID [facility] Last Admin: 07/29/20 09:38 Dose: 10 mg Documented by: Sodium Chloride (Sodium Chloride 0.9% 10 Ml Syringe) 10 ml FLUSH ASDIRECTED PRN PRN Reason: Keep Vein Open Tamsulosin HCl (Tamsulosin 0.4 Mg Cap.Er) 0.4 mg PO DAILY [facility] Last Admin: 07/29/20 09:38 Dose: 0.4 mg Documented by: Zolpidem Tartrate (Zolpidem 5 Mg Tab) 5 mg PO BEDTIME PRN PRN Reason: Insomnia Discontinued Medications Albuterol/Ipratropium (Albuterol/Ipratropium 3.0-0.5 Mg/3 Ml Neb Soln) 3 ml NEB Q4H [facility] Last Admin: 07/27/20 07:12 Dose: 3 ml Documented by: Piperacillin/Tazobactam/ (Dextrose 3.375 gm/ Premix) 50 mls @ 100 mls/hr IV Q6H [facility] Stop: 07/24/20 18:00 Last Admin: 07/24/20 17:02 Dose: 100 mls/hr Documented by: Sodium Chloride (Normal Saline) 1,000 mls @ 75 mls/hr IV ASDIRECTED [facility] Last Admin: 07/24/20 17:54 Dose: 75 mls/hr Documented by: Vancomycin HCl 1.3 gm/ Sodium (Chloride) 250 mls @ 167 mls/hr IV ONETIME ONE Stop: 07/24/20 18:29 Last Admin: 07/24/20 17:54 Dose: 167 mls/hr Documented by: Vancomycin HCl 1 gm/ Sodium (Chloride) 250 mls @ 167 mls/hr IV Q12H [facility] Last Admin: 07/29/20 04:22 Dose: 167 mls/hr Documented by: Sodium Chloride (Normal Saline) 75 mls @ 3 mls/sec IV ASDIRECTED [facility] Stop: 07/24/20 16:31 Last Admin: 07/24/20 16:54 Dose: 3 mls/sec Documented by: Piperacillin/Tazobactam/ (Dextrose 3.375 gm/ Premix) 50 mls @ 100 mls/hr IV Q6H [facility] Last Admin: 07/28/20 11:27 Dose: 100 mls/hr Documented by: Iopamidol (Iopamidol 612 Mg/Ml 100 Ml Bottle) 100 ml IV . DIRECTED [facility] Stop: 07/24/20 16:31 Last Admin: 07/24/20 16:54 Dose: 100 ml Documented by: Lidocaine/Epinephrine (Lidocaine 1% With Epinephrine 1:100,000 50 Ml Mdv) 10 ml INFILT ONETIME ONE Stop: 07/27/20 10:51 Last Admin: 07/27/20 11:43 Dose: 10 ml Documented by: Potassium Chloride (Potassium Chloride 20 Meq Tab.Er) 40 meq PO Q2H [facility] Stop: 07/24/20 18:01 Last Admin: 07/24/20 18:30 Dose: 40 meq Documented by: Sodium Chloride (Sodium Chloride 0.9% 10 Ml Syringe) 10 ml FLUSH ONETIME ONE Stop: 07/24/20 16:29 Last Admin: 07/24/20 16:54 Dose: 10 ml Documented by: - Exam Quality Assessment: No: Supplemental Oxygen General: Alert, Oriented, Cooperative, No Acute Distress Neck: Supple Lungs: Normal Respiratory Effort GI/Abdominal Exam: Soft, No Distention Extremities: Pedal Edema (left leg), Increased Warmth (left thigh ) Wound/Incisions: Drainage, Erythema, Other (large area of induration surrounding central abscess. Erythema within marked borders and is receding ) Psy/Mental Status: Alert, Normal Affect - Patient Data Result Diagrams: 07/28/20 04:05 07/28/20 04:05 Lee Results Last 24 hrs: Microbiology 07/27/20 11:40 Gram Stain - Final Leg, Left Wound Culture - Final (Mrsa) Staphylococcus Aureus Sepsis Event Note - Evaluation Sepsis Screening Result: No Definite Risk - Focused Exam Vital Signs: Vital Signs Temp Pulse Resp BP Pulse Ox 07/29/20 11:10 72 07/29/20 10:40 37.0 C 71 18 129/69 92 L 07/29/20 07:45 37.1 C 15 130/70 93 L 07/29/20 07:27 75 07/29/20 06:55 37.0 C 71 18 129/75 93 L 07/29/20 04:25 36.9 C 69 16 123/55 L 92 L - Problem List Review Problem List Initiated/Reviewed/Updated: Yes - My Orders Last 24 Hours: My Active Orders 07/28/20 16:00 Clindamycin Phosphate [Cleocin] 600 mg Sodium Chloride 0.9% [Normal Saline] 50 ml IV Q8H 07/29/20 12:34 Consult to Physician [CONS] Routine 07/29/20 12:35 Notify Provider Consults [RC] ASDIRECTED COVID-19/FLU A+B/RSV [MOLEC] Routine 07/29/20 Dinner NPO After Midnight [Nothing per Oral After Midnight Diet] [DIET] 07/30/20 05:00 BASIC METABOLIC PANEL,BMP [CHEM] Timed CBC W/O DIFF,HEMOGRAM [HEME] Timed (1) - Plan Plan:: ASSESSMENT AND PLAN - Left thigh abscess and cellulitis secondary to MRSA-cellulitis portion seems to be improving but still a fair amount of induration and pain as well as purulence in the abscess site. Culture did grow out MRSA. -Stop vancomycin -Continue clindamycin -Symptomatic management of pain -Daily wound care -Surgical consultation for additional debridement, planning for incision and debridement in the morning Increased dyspnea, history of COPD-patient has coarse breath sounds. Steadily improving during the hospital stay. Suspect environmental COPD exacerbation/reactive airway disease type presentation with near resolution at this time. -Consider steroids plus or minus pulmonary antibiotics if he worsens -Continue inhalers and nebulizers Chronic back pain-stable. -Continue home medications Maintenance issues - -DVT prophylaxis-mechanical -GI prophylaxis-not indicated -Nutrition-regular Disposition -I anticipate discharge home after the hospital stay Fermín Talbot M.D.
[2020-07-29] MEDS: Calcium Carbonate 500 MG Tab.Chew PO PRN (23:19)
[2020-07-30] MEDS ORDERED: Lidocaine 1% with EPINEPHrine 1:100,000 50 ML MDV ONE (06:49)
[2020-07-30] MEDS ORDERED: Bupivacaine 0.5% 50 ML MDV ONE (06:49)
[2020-07-30] MEDS ORDERED: Albuterol/Ipratropium 3.0-0.5 MG/3 ML Neb Soln INH ONE (07:00)
[2020-07-30] MEDS ORDERED: fentaNYL 250 MCG/5 ML SDV ONE (07:07)
[2020-07-30] MEDS ORDERED: Dexamethasone 4 MG/ML SDV ONE (07:08)
[2020-07-30] MEDS ORDERED: Propofol 200 MG/20 ML SDV ONE (07:08)
[2020-07-30] MEDS ORDERED: Rocuronium 50 MG/5 ML Vial ONE (07:08)
[2020-07-30] MEDS ORDERED: Succinylcholine 200 MG/10 ML MDV ONE (07:08)
[2020-07-30] MEDS ORDERED: Ondansetron 4 MG/2 ML SDV ONE (07:08)
[2020-07-30] MEDS ORDERED: Glycopyrrolate 0.2 MG/ML 5 ML MDV ONE (07:08)
[2020-07-30] MEDS ORDERED: Neostigmine Methylsulfate 1 MG/ML 5 ML Syringe ONE (07:08)
[2020-07-30] MEDS: Albuterol/Ipratropium 3.0-0.5 MG/3 ML Neb Soln NEB SCH ×5 (07:27→20:50)
--- NOTE | 2020-07-30 09:16 | PN ---
DATE OF SERVICE: 07/30/2020 SUBJECTIVE: Brian is n.p.o. He will be going down to OR for debridement of his left thigh abscess. He developed a bloody nose, left naris patency. He has had difficulty with bloody noses in the past, but has not had one for over a year. He did have surgery for bloody noses in the left, he thinks around 2017. Pain is controlled. Afebrile. REVIEW OF SYSTEMS: Remainder of review of systems negative for any pertinent positives and negatives. OBJECTIVE: GENERAL: Brian Eli is a 65-year-old male. VITAL SIGNS: TPR is 98.4, 66, 18, and blood pressure 134/77. HEENT: Active bleeding bright red blood, left naris. NECK: Supple. HEART: Regular rate and rhythm. LUNGS: Clear. EXTREMITIES: Left thigh unable to examine due to his bleeding ankles are without peripheral edema. NEURO: Intact. PSYCHIATRIC: Mood and affect appropriate. ASSESSMENT: Abscess, left thigh; methicillin-resistant Staphylococcus aureus; chronic obstructive pulmonary disease. PLAN: Consents are signed for left thigh debridement. Orders to be written postoperatively. Tammy Chandra PA-C /[id number]
[2020-07-30] MEDS: Ascorbic Acid 500 MG Tab PO SCH (09:50)
[2020-07-30] MEDS: Lactobacillus Rhamnosus GG (Probiotic) Cap PO SCH ×2 (09:50→20:49)
[2020-07-30] MEDS: oxyCODONE 5 MG Tab PO SCH ×3 (09:50→20:48)
[2020-07-30] MEDS: Finasteride 5 MG Tab PO SCH (09:50)
[2020-07-30] MEDS: Ferrous Sulfate 325 MG Tab PO SCH ×2 (09:50→17:22)
[2020-07-30] MEDS: HYDROmorphone 0.5 MG/0.5 ML Syringe IVPUSH PRN (09:50)
[2020-07-30] MEDS: Tamsulosin 0.4 MG Cap.ER PO SCH (09:50)
--- NOTE | 2020-07-30 10:44 | PCM.PN ---
- General Info Date of Service: 07/30/20 Subjective Update: No acute events overnight. Patient had an incision and debridement this morning. Gram stain of the fluid revealed few gram-positive cocci. Pain is better today. He is standing up and moving around. Shortness of breath is improving. He did not have any fevers overnight. He has not needed supplemental oxygen. He did have epistaxis overnight but this is better. Functional Status: Reports: Pain Controlled, Tolerating Diet - Review of Systems General: Denies: Fever - Patient Data Vitals - Most Recent: Last Vital Signs Temp 36.6 C 07/30/20 09:34 Pulse 79 07/30/20 09:45 Resp 18 07/30/20 09:45 BP 160/90 H 07/30/20 09:45 Pulse Ox 90 L 07/30/20 09:45 Weight - Most Recent: 65.317 kg I&O - Last 24 Hours: Intake & Output 07/29/20 07/30/20 07/30/20 22:59 06:59 14:59 Intake Total 1870 405 Output Total 600 Balance 1270 405 Lab Results Last 24 Hours: Laboratory Results - last 24 hr 07/29/20 07/30/20 07/30/20 Range/Units 13:35 04:52 04:52 WBC 7.8 (4.5-11.0) K/uL RBC 3.73 L (4.30-5.90) M/uL Hgb 11.0 L (12.0-15.0) g/dL Hct 33.5 L (40.0-54.0) % MCV 90 (80-98) fL MCH 30 (27-31) pg MCHC 33 (32-36) % Plt Count 324 (150-400) K/uL Sodium 140 (140-148) mmol/L Potassium 4.3 (3.6-5.2) mmol/L Chloride 101 (100-108) mmol/L Carbon Dioxide 28 (21-32) mmol/L Anion Gap 10.8 (5.0-14.0) mmol/L BUN 11 (7-18) mg/dL Creatinine 0.8 (0.8-1.3) mg/dL Est Cr Clr Drug Dosing 78.64 mL/min Estimated GFR (MDRD) > 60 (>60) Glucose 102 (74-106) mg/dL Calcium 9.3 (8.5-10.1) mg/dL SARS CoV-2 RNA Rapid SAVANNAH Negative Lee Results Last 24 Hours: Microbiology 07/30/20 08:32 Gram Stain - Final Thigh, Left 07/27/20 11:40 Gram Stain - Final Leg, Left Wound Culture - Final (Mrsa) Staphylococcus Aureus Med Orders - Current: Current Medications Acetaminophen (Acetaminophen 325 Mg Tab) 650 mg PO Q4H PRN PRN Reason: Pain (Mild 1-3)/fever Last Admin: 07/29/20 21:32 Dose: 650 mg Documented by: Albuterol (Albuterol 0.083% 2.5 Mg/3 Ml Neb Soln) 2.5 mg INH Q4H PRN PRN Reason: Dyspnea Last Admin: 07/27/20 19:37 Dose: 2.5 mg Documented by: Albuterol/Ipratropium (Albuterol/Ipratropium 3.0-0.5 Mg/3 Ml Neb Soln) 3 ml NEB QIDRT [facility] Last Admin: 07/30/20 07:27 Dose: 3 ml Documented by: Ascorbic Acid (Ascorbic Acid 500 Mg Tab) 500 mg PO DAILY [facility] Last Admin: 07/30/20 09:50 Dose: 500 mg Documented by: Calcium Carbonate/Glycine (Calcium Carbonate 500 Mg Tab.Chew) 1,000 mg PO Q2H PRN PRN Reason: Indigestion Last Admin: 07/29/20 23:19 Dose: 1,000 mg Documented by: Cyclobenzaprine HCl (Cyclobenzaprine 10 Mg Tab) 5 mg PO TID PRN PRN Reason: Spasms Last Admin: 07/27/20 19:37 Dose: 5 mg Documented by: Ferrous Sulfate (Ferrous Sulfate 325 Mg Tab) 325 mg PO BIDMEALS [facility] Last Admin: 07/30/20 09:50 Dose: 325 mg Documented by: Finasteride (Finasteride 5 Mg Tab) 5 mg PO DAILY [facility] Last Admin: 07/30/20 09:50 Dose: 5 mg Documented by: Hydromorphone HCl (Hydromorphone 0.5 Mg/0.5 Ml Syringe) 0.5 - 1 mg IVPUSH Q3H PRN PRN Reason: Pain Last Admin: 07/30/20 09:50 Dose: 1 mg Documented by: Clindamycin Phosphate 600 mg/ (Sodium Chloride) 54 mls @ 100 mls/hr IV Q8H [facility] Last Admin: 07/30/20 09:50 Dose: 100 mls/hr Documented by: Lactobacillus Rhamnosus (Lactobacillus Rhamnosus Gg (Probiotic) Cap) 1 cap PO BID [facility] Last Admin: 07/30/20 09:50 Dose: 1 cap Documented by: Ondansetron HCl (Ondansetron 4 Mg/2 Ml Sdv) 4 mg IV Q4H PRN PRN Reason: Nausea/Vomiting Oxycodone HCl (Oxycodone 5 Mg Tab) 10 mg PO TID [facility] Last Admin: 07/30/20 09:50 Dose: 10 mg Documented by: Sodium Chloride (Sodium Chloride 0.9% 10 Ml Syringe) 10 ml FLUSH ASDIRECTED PRN PRN Reason: Keep Vein Open Tamsulosin HCl (Tamsulosin 0.4 Mg Cap.Er) 0.4 mg PO DAILY [facility] Last Admin: 07/30/20 09:50 Dose: 0.4 mg Documented by: Zolpidem Tartrate (Zolpidem 5 Mg Tab) 5 mg PO BEDTIME PRN PRN Reason: Insomnia Discontinued Medications Albuterol/Ipratropium (Albuterol/Ipratropium 3.0-0.5 Mg/3 Ml Neb Soln) 3 ml NEB Q4H [facility] Last Admin: 07/27/20 07:12 Dose: 3 ml Documented by: Albuterol/Ipratropium (Albuterol/Ipratropium 3.0-0.5 Mg/3 Ml Neb Soln) 3 ml INH ONETIME ONE Stop: 07/30/20 07:01 Last Admin: 07/30/20 07:27 Dose: Not Given Documented by: Bupivacaine HCl (Bupivacaine 0.5% 50 Ml Mdv) Confirm Administered Dose 50 ml .ROUTE .STK-MED ONE Stop: 07/30/20 06:50 Dexamethasone (Dexamethasone 4 Mg/Ml Sdv) Confirm Administered Dose 4 mg .ROUTE .STK-MED ONE Stop: 07/30/20 07:09 Fentanyl (Fentanyl 250 Mcg/5 Ml Sdv) Confirm Administered Dose 250 mcg .ROUTE .STK-MED ONE Stop: 07/30/20 07:08 Glycopyrrolate (Glycopyrrolate 0.2 Mg/Ml 5 Ml Mdv) Confirm Administered Dose 1 mg .ROUTE .STK-MED ONE Stop: 07/30/20 07:09 Piperacillin/Tazobactam/ (Dextrose 3.375 gm/ Premix) 50 mls @ 100 mls/hr IV Q6H [facility] Stop: 07/24/20 18:00 Last Admin: 07/24/20 17:02 Dose: 100 mls/hr Documented by: Sodium Chloride (Normal Saline) 1,000 mls @ 75 mls/hr IV ASDIRECTED [facility] Last Admin: 07/24/20 17:54 Dose: 75 mls/hr Documented by: Vancomycin HCl 1.3 gm/ Sodium (Chloride) 250 mls @ 167 mls/hr IV ONETIME ONE Stop: 07/24/20 18:29 Last Admin: 07/24/20 17:54 Dose: 167 mls/hr Documented by: Vancomycin HCl 1 gm/ Sodium (Chloride) 250 mls @ 167 mls/hr IV Q12H [facility] Last Admin: 07/29/20 04:22 Dose: 167 mls/hr Documented by: Sodium Chloride (Normal Saline) 75 mls @ 3 mls/sec IV ASDIRECTED [facility] Stop: 07/24/20 16:31 Last Admin: 07/24/20 16:54 Dose: 3 mls/sec Documented by: Piperacillin/Tazobactam/ (Dextrose 3.375 gm/ Premix) 50 mls @ 100 mls/hr IV Q6H [facility] Last Admin: 07/28/20 11:27 Dose: 100 mls/hr Documented by: Linezolid (Zyvox) Confirm Administered Dose 300 mls @ as directed .ROUTE .STK- MED ONE Stop: 07/30/20 07:19 Iopamidol (Iopamidol 612 Mg/Ml 100 Ml Bottle) 100 ml IV . DIRECTED [facility] Stop: 07/24/20 16:31 Last Admin: 07/24/20 16:54 Dose: 100 ml Documented by: Lidocaine/Epinephrine (Lidocaine 1% With Epinephrine 1:100,000 50 Ml Mdv) 10 ml INFILT ONETIME ONE Stop: 07/27/20 10:51 Last Admin: 07/27/20 11:43 Dose: 10 ml Documented by: Lidocaine/Epinephrine (Lidocaine 1% With Epinephrine 1:100,000 50 Ml Mdv) Confirm Administered Dose 50 ml .ROUTE .STK-MED ONE Stop: 07/30/20 06:50 Neostigmine Methylsulfate (Neostigmine Methylsulfate 1 Mg/Ml 5 Ml Syringe) Confirm Administered Dose 5 mg .ROUTE .STK-MED ONE Stop: 07/30/20 07:09 Ondansetron HCl (Ondansetron 4 Mg/2 Ml Sdv) Confirm Administered Dose 4 mg .ROUTE .STK-MED ONE Stop: 07/30/20 07:09 Potassium Chloride (Potassium Chloride 20 Meq Tab.Er) 40 meq PO Q2H [facility] Stop: 07/24/20 18:01 Last Admin: 07/24/20 18:30 Dose: 40 meq Documented by: Propofol (Propofol 200 Mg/20 Ml Sdv) Confirm Administered Dose 200 mg .ROUTE .STK-MED ONE Stop: 07/30/20 07:09 Rocuronium [place] (Rocuronium 50 Mg/5 Ml Vial) Confirm Administered Dose 50 mg .ROUTE .STK-MED ONE Stop: 07/30/20 07:09 Sodium Chloride (Sodium Chloride 0.9% 10 Ml Syringe) 10 ml FLUSH ONETIME ONE Stop: 07/24/20 16:29 Last Admin: 07/24/20 16:54 Dose: 10 ml Documented by: Succinylcholine Chloride (Succinylcholine 200 Mg/10 Ml Mdv) Confirm Administered Dose 200 mg .ROUTE .STK-MED ONE Stop: 07/30/20 07:09 - Exam Quality Assessment: No: Supplemental Oxygen General: Alert, Oriented, Cooperative, No Acute Distress Lungs: Normal Respiratory Effort GI/Abdominal Exam: Soft, No Distention Skin: Warm, Dry Psy/Mental Status: Alert, Normal Affect - Patient Data Lab Results Last 24 hrs: Laboratory Results - last 24 hr 07/29/20 07/30/20 07/30/20 Range/Units 13:35 04:52 04:52 WBC 7.8 (4.5-11.0) K/uL RBC 3.73 L (4.30-5.90) M/uL Hgb 11.0 L (12.0-15.0) g/dL Hct 33.5 L (40.0-54.0) % MCV 90 (80-98) fL MCH 30 (27-31) pg MCHC 33 (32-36) % Plt Count 324 (150-400) K/uL Sodium 140 (140-148) mmol/L Potassium 4.3 (3.6-5.2) mmol/L Chloride 101 (100-108) mmol/L Carbon Dioxide 28 (21-32) mmol/L Anion Gap 10.8 (5.0-14.0) mmol/L BUN 11 (7-18) mg/dL Creatinine 0.8 (0.8-1.3) mg/dL Est Cr Clr Drug Dosing 78.64 mL/min Estimated GFR (MDRD) > 60 (>60) Glucose 102 (74-106) mg/dL Calcium 9.3 (8.5-10.1) mg/dL SARS CoV-2 RNA Rapid SAVANNAH Negative Result Diagrams: 07/30/20 04:52 07/30/20 04:52 Lee Results Last 24 hrs: Microbiology 07/30/20 08:32 Gram Stain - Final Thigh, Left 07/27/20 11:40 Gram Stain - Final Leg, Left Wound Culture - Final (Mrsa) Staphylococcus Aureus Sepsis Event Note - Evaluation Sepsis Screening Result: No Definite Risk - Focused Exam Vital Signs: Vital Signs Temp Pulse Resp BP BP Pulse Ox 07/30/20 09:45 79 18 160/90 H 90 L 07/30/20 09:34 36.6 C 84 18 151/75 H 91 L 07/30/20 09:14 36.4 C 75 20 139/90 92 L 07/30/20 08:55 35.6 C L 77 18 130/80 97 07/30/20 08:51 78 18 136/68 93 L 07/30/20 08:46 85 18 127/70 93 L 07/30/20 08:41 35.6 C L 85 18 131/67 97 07/30/20 08:36 94 18 118/71 99 07/30/20 08:31 94 18 109/66 92 L 07/30/20 08:25 35.4 C L 95 16 135/62 94 L 07/30/20 07:28 70 07/30/20 04:00 36.8 C 66 18 134/77 93 L - Problem List Review Problem List Initiated/Reviewed/Updated: Yes - My Orders Last 24 Hours: My Active Orders 07/29/20 12:34 Consult to Physician [CONS] Routine 07/29/20 12:35 Notify Provider Consults [RC] ASDIRECTED 07/30/20 09:22 Communication Order [RC] ROUTINE 07/30/20 09:24 Ambulate [RC] QID Up to Chair [RC] QID 07/30/20 Lunch Heart Healthy Diet [DIET] - Plan Plan:: ASSESSMENT AND PLAN - Left thigh abscess and cellulitis secondary to MRSA-status post more extensive incision and debridement on 07/30. Cultures so far have grown out pansensitive MRSA. Clinically doing better today. -Continue clindamycin -Symptomatic management of pain -Daily wound care -Surgical follow-up per Dr. Arrington -Oral stepdown with either clindamycin or Bactrim for 1 week after hospital discharge Increased dyspnea, history of COPD-patient has coarse breath sounds. Steadily improving during the hospital stay. Suspect environmental COPD exacerbation/reactive airway disease type presentation with near resolution at this time. -Continue inhalers and nebulizers Chronic back pain-stable. -Continue home medications Maintenance issues - -DVT prophylaxis-mechanical -GI prophylaxis-not indicated -Nutrition-regular Disposition -I anticipate discharge home after the hospital stay Fermín Talbot M.D.
[2020-07-30] MEDS ORDERED: Calcium Carbonate 500 MG Tab.Chew PO PRN (19:28)
[2020-07-30] MEDS: Calcium Carbonate 500 MG Tab.Chew PO PRN (19:41)
[2020-07-30] MEDS: Acetaminophen 325 MG Tab PO PRN (19:41)
[2020-07-31] MEDS: Albuterol/Ipratropium 3.0-0.5 MG/3 ML Neb Soln NEB SCH ×4 (07:19→20:35)
[2020-07-31] MEDS: Lactobacillus Rhamnosus GG (Probiotic) Cap PO SCH ×2 (08:36→20:34)
[2020-07-31] MEDS: Ascorbic Acid 500 MG Tab PO SCH (08:36)
[2020-07-31] MEDS: Tamsulosin 0.4 MG Cap.ER PO SCH (08:36)
[2020-07-31] MEDS: Ferrous Sulfate 325 MG Tab PO SCH ×2 (08:36→16:27)
[2020-07-31] MEDS: oxyCODONE 5 MG Tab PO SCH ×3 (08:36→20:34)
[2020-07-31] MEDS: Finasteride 5 MG Tab PO SCH (08:36)
--- NOTE | 2020-07-31 10:55 | PCM.PN ---
- General Info Date of Service: 07/31/20 Subjective Update: No acute events overnight. Vital signs have all been stable. No new positive culture results. No fevers. Patient and his are concerned about the state of infection and did initially request transfer to a different facility. They feel like opportunities were missed to manage the abscess earlier in the hospital stay and are frustrated with the size of the debridement that was necessary. They are very concerned about the fact that he has an MRSA inf ection. Window Trimmer Apprentice Ariadna, master planner Effie and I spent quite a bit of time and they are talking to them and reassuring them that we are working very hard to get them better and that the care they are getting here is as good as they would at a different facility and nothing more intense needs to be done to help with his healing process. The patient and his seem to be reassured after our conversation. Functional Status: Reports: Pain Controlled, Tolerating Diet - Review of Systems General: Denies: Fever Musculoskeletal: Reports: Leg Pain (left thigh ) - Patient Data Vitals - Most Recent: Last Vital Signs Temp 36.6 C 07/31/20 08:32 Pulse 75 07/31/20 08:32 Resp 18 07/31/20 08:32 BP 126/73 07/31/20 08:32 Pulse Ox 93 L 07/31/20 08:32 Weight - Most Recent: 65.317 kg I&O - Last 24 Hours: Intake & Output 07/30/20 07/31/20 07/31/20 22:59 06:59 14:59 Intake Total 460 1130 Balance 460 1130 Lee Results Last 24 Hours: Microbiology 07/30/20 08:32 Gram Stain - Final Thigh, Left Wound Culture - Preliminary NO GROWTH AFTER 1 DAY Anaerobic Culture - Preliminary NO GROWTH AFTER 1 DAY Med Orders - Current: Current Medications Acetaminophen (Acetaminophen 325 Mg Tab) 650 mg PO Q4H PRN PRN Reason: Pain (Mild 1-3)/fever Last Admin: 07/30/20 19:41 Dose: 650 mg Documented by: Albuterol (Albuterol 0.083% 2.5 Mg/3 Ml Neb Soln) 2.5 mg INH Q4H PRN PRN Reason: Dyspnea Last Admin: 07/27/20 19:37 Dose: 2.5 mg Documented by: Albuterol/Ipratropium (Albuterol/Ipratropium 3.0-0.5 Mg/3 Ml Neb Soln) 3 ml NEB QIDRT [facility] Last Admin: 07/31/20 07:19 Dose: 3 ml Documented by: Ascorbic Acid (Ascorbic Acid 500 Mg Tab) 500 mg PO DAILY [facility] Last Admin: 07/31/20 08:36 Dose: 500 mg Documented by: Calcium Carbonate/Glycine (Calcium Carbonate 500 Mg Tab.Chew) 1,000 mg PO Q2H PRN PRN Reason: Indigestion Last Admin: 07/30/20 19:41 Dose: 1,000 mg Documented by: Calcium Carbonate/Glycine (Calcium Carbonate 500 Mg Tab.Chew) 500 mg PO Q2H PRN PRN Reason: Indigestion Cyclobenzaprine HCl (Cyclobenzaprine 10 Mg Tab) 5 mg PO TID PRN PRN Reason: Spasms Last Admin: 07/27/20 19:37 Dose: 5 mg Documented by: Ferrous Sulfate (Ferrous Sulfate 325 Mg Tab) 325 mg PO BIDMEALS [facility] Last Admin: 07/31/20 08:36 Dose: 325 mg Documented by: Finasteride (Finasteride 5 Mg Tab) 5 mg PO DAILY [facility] Last Admin: 07/31/20 08:36 Dose: 5 mg Documented by: Hydromorphone HCl (Hydromorphone 0.5 Mg/0.5 Ml Syringe) 0.5 - 1 mg IVPUSH Q3H PRN PRN Reason: Pain Last Admin: 07/30/20 09:50 Dose: 1 mg Documented by: Clindamycin Phosphate 600 mg/ (Sodium Chloride) 54 mls @ 100 mls/hr IV Q8H [facility] Last Admin: 07/31/20 08:39 Dose: 100 mls/hr Documented by: Lactobacillus Rhamnosus (Lactobacillus Rhamnosus Gg (Probiotic) Cap) 1 cap PO BID [facility] Last Admin: 07/31/20 08:36 Dose: 1 cap Documented by: Ondansetron HCl (Ondansetron 4 Mg/2 Ml Sdv) 4 mg IV Q4H PRN PRN Reason: Nausea/Vomiting Oxycodone HCl (Oxycodone 5 Mg Tab) 10 mg PO TID [facility] Last Admin: 07/31/20 08:36 Dose: 10 mg Documented by: Sodium Chloride (Sodium Chloride 0.9% 10 Ml Syringe) 10 ml FLUSH ASDIRECTED PRN PRN Reason: Keep Vein Open Tamsulosin HCl (Tamsulosin 0.4 Mg Cap.Er) 0.4 mg PO DAILY [facility] Last Admin: 07/31/20 08:36 Dose: 0.4 mg Documented by: Zolpidem Tartrate (Zolpidem 5 Mg Tab) 5 mg PO BEDTIME PRN PRN Reason: Insomnia Discontinued Medications Albuterol/Ipratropium (Albuterol/Ipratropium 3.0-0.5 Mg/3 Ml Neb Soln) 3 ml NEB Q4H [facility] Last Admin: 07/27/20 07:12 Dose: 3 ml Documented by: Albuterol/Ipratropium (Albuterol/Ipratropium 3.0-0.5 Mg/3 Ml Neb Soln) 3 ml INH ONETIME ONE Stop: 07/30/20 07:01 Last Admin: 07/30/20 07:27 Dose: Not Given Documented by: Bupivacaine HCl (Bupivacaine 0.5% 50 Ml Mdv) Confirm Administered Dose 50 ml .ROUTE .STK-MED ONE Stop: 07/30/20 06:50 Last Admin: 07/30/20 11:11 Dose: 10 ml Documented by: Dexamethasone (Dexamethasone 4 Mg/Ml Sdv) Confirm Administered Dose 4 mg .ROUTE .STK-MED ONE Stop: 07/30/20 07:09 Fentanyl (Fentanyl 250 Mcg/5 Ml Sdv) Confirm Administered Dose 250 mcg .ROUTE .STK-MED ONE Stop: 07/30/20 07:08 Glycopyrrolate (Glycopyrrolate 0.2 Mg/Ml 5 Ml Mdv) Confirm Administered Dose 1 mg .ROUTE .STK-MED ONE Stop: 07/30/20 07:09 Piperacillin/Tazobactam/ (Dextrose 3.375 gm/ Premix) 50 mls @ 100 mls/hr IV Q6H [facility] Stop: 07/24/20 18:00 Last Admin: 07/24/20 17:02 Dose: 100 mls/hr Documented by: Sodium Chloride (Normal Saline) 1,000 mls @ 75 mls/hr IV ASDIRECTED [facility] Last Admin: 07/24/20 17:54 Dose: 75 mls/hr Documented by: Vancomycin HCl 1.3 gm/ Sodium (Chloride) 250 mls @ 167 mls/hr IV ONETIME ONE Stop: 07/24/20 18:29 Last Admin: 07/24/20 17:54 Dose: 167 mls/hr Documented by: Vancomycin HCl 1 gm/ Sodium (Chloride) 250 mls @ 167 mls/hr IV Q12H [facility] Last Admin: 07/29/20 04:22 Dose: 167 mls/hr Documented by: Sodium Chloride (Normal Saline) 75 mls @ 3 mls/sec IV ASDIRECTED [facility] Stop: 07/24/20 16:31 Last Admin: 07/24/20 16:54 Dose: 3 mls/sec Documented by: Piperacillin/Tazobactam/ (Dextrose 3.375 gm/ Premix) 50 mls @ 100 mls/hr IV Q6H [facility] Last Admin: 07/28/20 11:27 Dose: 100 mls/hr Documented by: Linezolid (Zyvox) Confirm Administered Dose 300 mls @ as directed .ROUTE .STK- MED ONE Stop: 07/30/20 07:19 Iopamidol (Iopamidol 612 Mg/Ml 100 Ml Bottle) 100 ml IV . DIRECTED [facility] Stop: 07/24/20 16:31 Last Admin: 07/24/20 16:54 Dose: 100 ml Documented by: Lidocaine/Epinephrine (Lidocaine 1% With Epinephrine 1:100,000 50 Ml Mdv) 10 ml INFILT ONETIME ONE Stop: 07/27/20 10:51 Last Admin: 07/27/20 11:43 Dose: 10 ml Documented by: Lidocaine/Epinephrine (Lidocaine 1% With Epinephrine 1:100,000 50 Ml Mdv) Confirm Administered Dose 50 ml .ROUTE .STK-MED ONE Stop: 07/30/20 06:50 Last Admin: 07/30/20 11:11 Dose: 10 ml Documented by: Neostigmine Methylsulfate (Neostigmine Methylsulfate 1 Mg/Ml 5 Ml Syringe) Confirm Administered Dose 5 mg .ROUTE .STK-MED ONE Stop: 07/30/20 07:09 Ondansetron HCl (Ondansetron 4 Mg/2 Ml Sdv) Confirm Administered Dose 4 mg .ROUTE .STK-MED ONE Stop: 07/30/20 07:09 Potassium Chloride (Potassium Chloride 20 Meq Tab.Er) 40 meq PO Q2H [facility] Stop: 07/24/20 18:01 Last Admin: 07/24/20 18:30 Dose: 40 meq Documented by: Propofol (Propofol 200 Mg/20 Ml Sdv) Confirm Administered Dose 200 mg .ROUTE .STK-MED ONE Stop: 07/30/20 07:09 Rocuronium [place] (Rocuronium 50 Mg/5 Ml Vial) Confirm Administered Dose 50 mg .ROUTE .STK-MED ONE Stop: 07/30/20 07:09 Sodium Chloride (Sodium Chloride 0.9% 10 Ml Syringe) 10 ml FLUSH ONETIME ONE Stop: 07/24/20 16:29 Last Admin: 07/24/20 16:54 Dose: 10 ml Documented by: Succinylcholine [place] (Succinylcholine 200 Mg/10 Ml Mdv) Confirm Administered Dose 200 mg .ROUTE .STK-MED ONE Stop: 07/30/20 07:09 - Exam Quality Assessment: No: Supplemental Oxygen General: Alert, Oriented, Cooperative, No Acute Distress Lungs: Normal Respiratory Effort GI/Abdominal Exam: Soft, No Distention Extremities: No Pedal Edema Skin: Warm, Dry Wound/Incisions: No Drainage, Erythema Improving, Other (eliptical shaped surgical wound left anterior thigh. Minimal bleeding from proximal and lateral corner with palpation around edges. Minimal surrounding induration. ) Psy/Mental Status: Alert, Normal Affect - Patient Data Result Diagrams: 07/30/20 04:52 07/30/20 04:52 Lee Results Last 24 hrs: Microbiology 07/30/20 08:32 Gram Stain - Final Thigh, Left Wound Culture - Preliminary NO GROWTH AFTER 1 DAY Anaerobic Culture - Preliminary NO GROWTH AFTER 1 DAY Sepsis Event Note - Evaluation Sepsis Screening Result: No Definite Risk - Focused Exam Vital Signs: Vital Signs Temp Pulse Resp BP BP Pulse Ox 07/31/20 08:32 36.6 C 75 18 126/73 93 L 07/31/20 03:00 36.2 C 66 16 138/70 94 L 07/30/20 22:56 36.5 C 83 16 149/66 H 96 - Problem List Review Problem List Initiated/Reviewed/Updated: Yes - My Orders Last 24 Hours: My Active Orders 07/30/20 Lunch Heart Healthy Diet [DIET] 07/30/20 19:28 Calcium Carbonate [Tums] 500 mg PO Q2H PRN 08/01/20 05:00 BASIC METABOLIC PANEL,BMP [CHEM] Timed CBC W/O DIFF,HEMOGRAM [HEME] Timed (1) - Plan Plan:: ASSESSMENT AND PLAN - Left thigh abscess and cellulitis secondary to MRSA-status post more extensive incision and debridement on 07/30. Original culture grew out pansensitive MRSA. Repeat cultures negative so far. Erythema and induration around the debridement site have improved greatly since yesterday. -Continue clindamycin -Symptomatic management of pain -Twice Daily wound care -Surgical follow-up per Dr. Arrington -Oral stepdown with either clindamycin or Bactrim for 1 week after hospital discharge Increased dyspnea, history of COPD-stable and doing well. -Continue inhalers and nebulizers Chronic back pain-stable. -Continue home medications Maintenance issues - -DVT prophylaxis-mechanical -GI prophylaxis-not indicated -Nutrition-regular Disposition -I anticipate discharge home after the hospital stay Fermín Talbot M.D.
--- NOTE | 2020-07-31 12:15 | PN ---
DATE OF SERVICE: 07/31/2020 SUBJECTIVE: Brian states his pain is controlled. He has been having dressing changes officially twice yesterday, but his dressing fell off twice during day shift. He has had 1895 in and independent voiding. He has no concerns or questions today. Micro shows wound culture, MRSA. OBJECTIVE: GENERAL: Brian Eli is a pleasant 65-year-old male. VITAL SIGNS: TPR is 97.2, 66, and 16. Blood pressure 138/70. HEENT: Negative. NECK: Supple. HEART: Regular rate and rhythm. LUNGS: Reveal coarse rales. EXTREMITIES: Left mid thigh area is open 6 cm x 4 cm. There is dry gauze in open area. There is some redness approximately of an inch and skin around mainly the inferior part of the open area, which is soft and pink. This was examined by Khadar Arrington MD. Remainder of review of systems negative. ASSESSMENT: Incision and drainage of decubitus ulcers 6 x 4 cm for necrotizing infection of left anterior lateral thigh with associated drainage of abscess. Date of procedure 07/30/2020. Surgeon: Khadar Arrington MD. PLAN: Continue dressing changes b.i.d. Pack with dry 4x4s and cover with ABD. Do this twice daily. Referral to discharge planning for home health care for dressing changes b.i.d. Tentatively plan discharge on Monday08/03/2020 unless that area described above needs to be further debrided. We will evaluate p.r.n. or in a.m. Tammy Chandra PA-C /[id number]
[2020-07-31] MEDS: Cyclobenzaprine 10 MG Tab PO PRN (16:33)
[2020-07-31] MEDS: Acetaminophen 325 MG Tab PO PRN ×2 (16:33→23:53)
[2020-07-31] MEDS: Albuterol 0.083% 2.5 MG/3 ML Neb Soln INH PRN (16:37)
[2020-07-31] MEDS: HYDROmorphone 0.5 MG/0.5 ML Syringe IVPUSH PRN (23:54)
[2020-08-01] MEDS: Albuterol/Ipratropium 3.0-0.5 MG/3 ML Neb Soln NEB SCH ×4 (07:24→20:29)
[2020-08-01] MEDS: oxyCODONE 5 MG Tab PO SCH ×3 (08:32→20:28)
[2020-08-01] MEDS: Ascorbic Acid 500 MG Tab PO SCH (08:33)
[2020-08-01] MEDS: Finasteride 5 MG Tab PO SCH (08:33)
[2020-08-01] MEDS: Lactobacillus Rhamnosus GG (Probiotic) Cap PO SCH ×2 (08:33→20:29)
[2020-08-01] MEDS: Ferrous Sulfate 325 MG Tab PO SCH ×2 (08:33→17:19)
[2020-08-01] MEDS: Tamsulosin 0.4 MG Cap.ER PO SCH (08:34)
--- NOTE | 2020-08-01 11:22 | PCM.PN ---
- General Info Date of Service: 08/01/20 Subjective Update: No acute events overnight. Pain is stable compared to yesterday. No fevers. No nausea. Shortness of breath stable. No new culture results. I was able to express some purulent material as well as a couple of small blood clots and some serosanguineous fluid from the distal medial area of the incision this morning. Functional Status: Reports: Pain Controlled, Tolerating Diet - Review of Systems General: Denies: Fever Musculoskeletal: Reports: Leg Pain (left thigh ) - Patient Data Vitals - Most Recent: Last Vital Signs Temp 37.1 C 08/01/20 08:29 Pulse 73 08/01/20 08:29 Resp 20 08/01/20 08:29 BP 116/61 08/01/20 08:29 Pulse Ox 96 08/01/20 08:29 Weight - Most Recent: 65.317 kg I&O - Last 24 Hours: Intake & Output 07/31/20 08/01/20 08/01/20 22:59 06:59 14:59 Intake Total 650 530 Balance 650 530 Lab Results Last 24 Hours: Laboratory Results - last 24 hr 08/01/20 08/01/20 Range/Units 04:26 04:26 WBC 5.5 (4.5-11.0) K/uL RBC 3.41 L (4.30-5.90) M/uL Hgb 9.9 L (12.0-15.0) g/dL Hct 31.3 L (40.0-54.0) % MCV 92 (80-98) fL MCH 29 (27-31) pg MCHC 32 (32-36) % Plt Count 329 (150-400) K/uL Sodium 141 (140-148) mmol/L Potassium 4.0 (3.6-5.2) mmol/L Chloride 102 (100-108) mmol/L Carbon Dioxide 27 (21-32) mmol/L Anion Gap 11.6 (5.0-14.0) mmol/L BUN 12 (7-18) mg/dL Creatinine 0.9 (0.8-1.3) mg/dL Est Cr Clr Drug Dosing 69.90 mL/min Estimated GFR (MDRD) > 60 (>60) Glucose 93 (74-106) mg/dL Calcium 8.7 (8.5-10.1) mg/dL Lee Results Last 24 Hours: Microbiology 07/30/20 08:32 Gram Stain - Final Thigh, Left Wound Culture - Preliminary NO GROWTH AFTER 2 DAYS Anaerobic Culture - Preliminary NO GROWTH AFTER 2 DAYS Med Orders - Current: Current Medications Acetaminophen (Acetaminophen 325 Mg Tab) 650 mg PO Q4H PRN PRN Reason: Pain (Mild 1-3)/fever Last Admin: 07/31/20 23:53 Dose: 650 mg Documented by: Albuterol (Albuterol 0.083% 2.5 Mg/3 Ml Neb Soln) 2.5 mg INH Q4H PRN PRN Reason: Dyspnea Last Admin: 07/31/20 16:37 Dose: 2.5 mg Documented by: Albuterol/Ipratropium (Albuterol/Ipratropium 3.0-0.5 Mg/3 Ml Neb Soln) 3 ml NEB QIDRT [facility] Last Admin: 08/01/20 10:50 Dose: 3 ml Documented by: Ascorbic Acid (Ascorbic Acid 500 Mg Tab) 500 mg PO DAILY [facility] Last Admin: 08/01/20 08:33 Dose: 500 mg Documented by: Calcium Carbonate/Glycine (Calcium Carbonate 500 Mg Tab.Chew) 1,000 mg PO Q2H PRN PRN Reason: Indigestion Last Admin: 07/30/20 19:41 Dose: 1,000 mg Documented by: Calcium Carbonate/Glycine (Calcium Carbonate 500 Mg Tab.Chew) 500 mg PO Q2H PRN PRN Reason: Indigestion Cyclobenzaprine HCl (Cyclobenzaprine 10 Mg Tab) 5 mg PO TID PRN PRN Reason: Spasms Last Admin: 07/31/20 16:33 Dose: 5 mg Documented by: Ferrous Sulfate (Ferrous Sulfate 325 Mg Tab) 325 mg PO BIDMEALS [facility] Last Admin: 08/01/20 08:33 Dose: 325 mg Documented by: Finasteride (Finasteride 5 Mg Tab) 5 mg PO DAILY [facility] Last Admin: 08/01/20 08:33 Dose: 5 mg Documented by: Hydromorphone HCl (Hydromorphone 0.5 Mg/0.5 Ml Syringe) 0.5 - 1 mg IVPUSH Q3H PRN PRN Reason: Pain Last Admin: 07/31/20 23:54 Dose: 0.5 mg Documented by: Clindamycin Phosphate 600 mg/ (Sodium Chloride) 54 mls @ 100 mls/hr IV Q8H [facility] Last Admin: 08/01/20 08:38 Dose: 100 mls/hr Documented by: Lactobacillus Rhamnosus (Lactobacillus Rhamnosus Gg (Probiotic) Cap) 1 cap PO BID [facility] Last Admin: 08/01/20 08:33 Dose: 1 cap Documented by: Ondansetron HCl (Ondansetron 4 Mg/2 Ml Sdv) 4 mg IV Q4H PRN PRN Reason: Nausea/Vomiting Oxycodone HCl (Oxycodone 5 Mg Tab) 10 mg PO TID [facility] Last Admin: 08/01/20 08:32 Dose: 10 mg Documented by: Sodium Chloride (Sodium Chloride 0.9% 10 Ml Syringe) 10 ml FLUSH ASDIRECTED PRN PRN Reason: Keep Vein Open Tamsulosin HCl (Tamsulosin 0.4 Mg Cap.Er) 0.4 mg PO DAILY [facility] Last Admin: 08/01/20 08:34 Dose: 0.4 mg Documented by: Zolpidem Tartrate (Zolpidem 5 Mg Tab) 5 mg PO BEDTIME PRN PRN Reason: Insomnia Discontinued Medications Albuterol/Ipratropium (Albuterol/Ipratropium 3.0-0.5 Mg/3 Ml Neb Soln) 3 ml NEB Q4H [facility] Last Admin: 07/27/20 07:12 Dose: 3 ml Documented by: Albuterol/Ipratropium (Albuterol/Ipratropium 3.0-0.5 Mg/3 Ml Neb Soln) 3 ml INH ONETIME ONE Stop: 07/30/20 07:01 Last Admin: 07/30/20 07:27 Dose: Not Given Documented by: Bupivacaine HCl (Bupivacaine 0.5% 50 Ml Mdv) Confirm Administered Dose 50 ml .ROUTE .STK-MED ONE Stop: 07/30/20 06:50 Last Admin: 07/30/20 11:11 Dose: 10 ml Documented by: Dexamethasone (Dexamethasone 4 Mg/Ml Sdv) Confirm Administered Dose 4 mg .ROUTE .STK-MED ONE Stop: 07/30/20 07:09 Fentanyl (Fentanyl 250 Mcg/5 Ml Sdv) Confirm Administered Dose 250 mcg .ROUTE .STK-MED ONE Stop: 07/30/20 07:08 Glycopyrrolate (Glycopyrrolate 0.2 Mg/Ml 5 Ml Mdv) Confirm Administered Dose 1 mg .ROUTE .STK-MED ONE Stop: 07/30/20 07:09 Piperacillin/Tazobactam/ (Dextrose 3.375 gm/ Premix) 50 mls @ 100 mls/hr IV Q6H [facility] Stop: 07/24/20 18:00 Last Admin: 07/24/20 17:02 Dose: 100 mls/hr Documented by: Sodium Chloride (Normal Saline) 1,000 mls @ 75 mls/hr IV ASDIRECTED [facility] Last Admin: 07/24/20 17:54 Dose: 75 mls/hr Documented by: Vancomycin HCl 1.3 gm/ Sodium (Chloride) 250 mls @ 167 mls/hr IV ONETIME ONE Stop: 07/24/20 18:29 Last Admin: 07/24/20 17:54 Dose: 167 mls/hr Documented by: Vancomycin HCl 1 gm/ Sodium (Chloride) 250 mls @ 167 mls/hr IV Q12H [facility] Last Admin: 07/29/20 04:22 Dose: 167 mls/hr Documented by: Sodium Chloride (Normal Saline) 75 mls @ 3 mls/sec IV ASDIRECTED [facility] Stop: 07/24/20 16:31 Last Admin: 07/24/20 16:54 Dose: 3 mls/sec Documented by: Piperacillin/Tazobactam/ (Dextrose 3.375 gm/ Premix) 50 mls @ 100 mls/hr IV Q6H [facility] Last Admin: 07/28/20 11:27 Dose: 100 mls/hr Documented by: Linezolid (Zyvox) Confirm Administered Dose 300 mls @ as directed .ROUTE .STK- MED ONE Stop: 07/30/20 07:19 Iopamidol (Iopamidol 612 Mg/Ml 100 Ml Bottle) 100 ml IV . DIRECTED [facility] Stop: 07/24/20 16:31 Last Admin: 07/24/20 16:54 Dose: 100 ml Documented by: Lidocaine/Epinephrine (Lidocaine 1% With Epinephrine 1:100,000 50 Ml Mdv) 10 ml INFILT ONETIME ONE Stop: 07/27/20 10:51 Last Admin: 07/27/20 11:43 Dose: 10 ml Documented by: Lidocaine/Epinephrine (Lidocaine 1% With Epinephrine 1:100,000 50 Ml Mdv) Confirm Administered Dose 50 ml .ROUTE .STK-MED ONE Stop: 07/30/20 06:50 Last Admin: 07/30/20 11:11 Dose: 10 ml Documented by: Neostigmine Methylsulfate (Neostigmine Methylsulfate 1 Mg/Ml 5 Ml Syringe) Confirm Administered Dose 5 mg .ROUTE .STK-MED ONE Stop: 07/30/20 07:09 Ondansetron HCl (Ondansetron 4 Mg/2 Ml Sdv) Confirm Administered Dose 4 mg .ROU TE .STK-MED ONE Stop: 07/30/20 07:09 Potassium Chloride (Potassium Chloride 20 Meq Tab.Er) 40 meq PO Q2H [facility] Stop: 07/24/20 18:01 Last Admin: 07/24/20 18:30 Dose: 40 meq Documented by: Propofol (Propofol 200 Mg/20 Ml Sdv) Confirm Administered Dose 200 mg .ROUTE .STK-MED ONE Stop: 07/30/20 07:09 Rocuronium [place] (Rocuronium 50 Mg/5 Ml Vial) Confirm Administered Dose 50 mg .ROUTE .STK-MED ONE Stop: 07/30/20 07:09 Sodium Chloride (Sodium Chloride 0.9% 10 Ml Syringe) 10 ml FLUSH ONETIME ONE Stop: 07/24/20 16:29 Last Admin: 07/24/20 16:54 Dose: 10 ml Documented by: Succinylcholine Chloride (Succinylcholine 200 Mg/10 Ml Mdv) Confirm Administered Dose 200 mg .ROUTE .STK-MED ONE Stop: 07/30/20 07:09 - Exam Quality Assessment: No: Supplemental Oxygen General: Alert, Oriented, Cooperative, No Acute Distress Lungs: Normal Respiratory Effort, Wheezing GI/Abdominal Exam: Soft, No Distention Extremities: No Pedal Edema. No: Increased Warmth Skin: Warm, Dry Wound/Incisions: Healing Well, Drainage, Erythema Improving. No: Dressing Dry and Intact Psy/Mental Status: Alert, Normal Affect - Patient Data Lab Results Last 24 hrs: Laboratory Results - last 24 hr 08/01/20 08/01/20 Range/Units 04:26 04:26 WBC 5.5 (4.5-11.0) K/uL RBC 3.41 L (4.30-5.90) M/uL Hgb 9.9 L (12.0-15.0) g/dL Hct 31.3 L (40.0-54.0) % MCV 92 (80-98) fL MCH 29 (27-31) pg MCHC 32 (32-36) % Plt Count 329 (150-400) K/uL Sodium 141 (140-148) mmol/L Potassium 4.0 (3.6-5.2) mmol/L Chloride 102 (100-108) mmol/L Carbon Dioxide 27 (21-32) mmol/L Anion Gap 11.6 (5.0-14.0) mmol/L BUN 12 (7-18) mg/dL Creatinine 0.9 (0.8-1.3) mg/dL Est Cr Clr Drug Dosing 69.90 mL/min Estimated GFR (MDRD) > 60 (>60) Glucose 93 (74-106) mg/dL Calcium 8.7 (8.5-10.1) mg/dL Result Diagrams: 08/01/20 04:26 08/01/20 04:26 Lee Results Last 24 hrs: Microbiology 07/30/20 08:32 Gram Stain - Final Thigh, Left Wound Culture - Preliminary NO GROWTH AFTER 2 DAYS Anaerobic Culture - Preliminary NO GROWTH AFTER 2 DAYS Sepsis Event Note - Evaluation Sepsis Screening Result: No Definite Risk - Focused Exam Vital Signs: Vital Signs Temp Pulse Resp BP BP Pulse Ox 08/01/20 08:29 37.1 C 73 20 116/61 96 08/01/20 03:00 36.0 C L 63 18 147/70 H 95 - Problem List Review Problem List Initiated/Reviewed/Updated: Yes - Plan Plan:: ASSESSMENT AND PLAN - Left thigh abscess and cellulitis secondary to MRSA-status post more extensive incision and debridement on 07/30. Original culture grew out pansensitive MRSA. Repeat cultures negative so far. Clinically he is looking better but there is an area distal to and medial to the area of debridement that continues to contain areas of purulence and fluid and will need a little bit more monitoring. -Continue clindamycin, transition to p.o. at the time of discharge -Symptomatic management of pain -Twice Daily wound care -Surgical follow-up per Dr. Arrington Increased dyspnea, history of COPD-stable and doing well. -Continue inhalers and nebulizers Chronic back pain-stable. -Continue home medications Maintenance issues - -DVT prophylaxis-mechanical -GI prophylaxis-not indicated -Nutrition-regular Disposition -I anticipate discharge home after the hospital stay. Wound will need to be reassessed tomorrow morning. Fermín Talbot M.D.
[2020-08-01] MEDS: HYDROmorphone 0.5 MG/0.5 ML Syringe IVPUSH PRN ×2 (13:14→20:22)
[2020-08-01] MEDS: Acetaminophen 325 MG Tab PO PRN (13:14)
[2020-08-01] MEDS: Albuterol 0.083% 2.5 MG/3 ML Neb Soln INH PRN (20:28)
[2020-08-02] MEDS: HYDROmorphone 0.5 MG/0.5 ML Syringe IVPUSH PRN ×2 (01:41→21:21)
[2020-08-02] MEDS: Albuterol/Ipratropium 3.0-0.5 MG/3 ML Neb Soln NEB SCH ×4 (07:22→21:23)
[2020-08-02] MEDS: Lactobacillus Rhamnosus GG (Probiotic) Cap PO SCH ×2 (08:29→21:23)
[2020-08-02] MEDS: Ferrous Sulfate 325 MG Tab PO SCH ×2 (08:29→17:27)
[2020-08-02] MEDS: Tamsulosin 0.4 MG Cap.ER PO SCH (08:29)
[2020-08-02] MEDS: Finasteride 5 MG Tab PO SCH (08:29)
[2020-08-02] MEDS: oxyCODONE 5 MG Tab PO SCH ×3 (08:29→21:22)
[2020-08-02] MEDS: Ascorbic Acid 500 MG Tab PO SCH (08:29)
--- NOTE | 2020-08-02 11:15 | PCM.PN ---
- General Info Date of Service: 08/02/20 Subjective Update: No acute events overnight. Pain has been stable though with slightly increased following the application of his dressing this morning. He thinks the dressing is too tight. Dr. Arrington did attempt to expel additional fluid and/or purulence from the wound on the left thigh but was unsuccessful. He has not had any fevers. There are no new positive culture results. Overall he is feeling better. Dr. Arrington recommended 1 more day of monitoring to make sure no additional purulence or fluid accumulates in the area of concern distal to the debrided area. Functional Status: Reports: Pain Controlled, Tolerating Diet - Review of Systems General: Denies: Fever Musculoskeletal: Reports: Leg Pain (left thigh ) - Patient Data Vitals - Most Recent: Last Vital Signs Temp 36.6 C 08/02/20 07:00 Pulse 66 08/02/20 07:00 Resp 16 08/02/20 07:00 BP 135/67 08/02/20 07:00 Pulse Ox 97 08/02/20 07:00 Weight - Most Recent: 65.317 kg I&O - Last 24 Hours: Intake & Output 08/01/20 08/02/20 08/02/20 22:59 06:59 14:59 Intake Total 630 1410 658 Output Total 700 Balance 630 710 658 Lee Results Last 24 Hours: Microbiology 07/30/20 08:32 Gram Stain - Final Thigh, Left Wound Culture - Final NO GROWTH AFTER 3 DAYS Anaerobic Culture - Final NO GROWTH AFTER 3 DAYS Med Orders - Current: Current Medications Acetaminophen (Acetaminophen 325 Mg Tab) 650 mg PO Q4H PRN PRN Reason: Pain (Mild 1-3)/fever Last Admin: 08/01/20 13:14 Dose: 650 mg Documented by: Albuterol (Albuterol 0.083% 2.5 Mg/3 Ml Neb Soln) 2.5 mg INH Q4H PRN PRN Reason: Dyspnea Last Admin: 08/01/20 20:28 Dose: 2.5 mg Documented by: Albuterol/Ipratropium (Albuterol/Ipratropium 3.0-0.5 Mg/3 Ml Neb Soln) 3 ml NEB QIDRT [facility] Last Admin: 08/02/20 10:56 Dose: 3 ml Documented by: Ascorbic Acid (Ascorbic Acid 500 Mg Tab) 500 mg PO DAILY [facility] Last Admin: 08/02/20 08:29 Dose: 500 mg Documented by: Calcium Carbonate/Glycine (Calcium Carbonate 500 Mg Tab.Chew) 1,000 mg PO Q2H PRN PRN Reason: Indigestion Last Admin: 07/30/20 19:41 Dose: 1,000 mg Documented by: Calcium Carbonate/Glycine (Calcium Carbonate 500 Mg Tab.Chew) 500 mg PO Q2H PRN PRN Reason: Indigestion Cyclobenzaprine HCl (Cyclobenzaprine 10 Mg Tab) 5 mg PO TID PRN PRN Reason: Spasms Last Admin: 07/31/20 16:33 Dose: 5 mg Documented by: Ferrous Sulfate (Ferrous Sulfate 325 Mg Tab) 325 mg PO BIDMEALS [facility] Last Admin: 08/02/20 08:29 Dose: 325 mg Documented by: Finasteride (Finasteride 5 Mg Tab) 5 mg PO DAILY [facility] Last Admin: 08/02/20 08:29 Dose: 5 mg Documented by: Hydromorphone HCl (Hydromorphone 0.5 Mg/0.5 Ml Syringe) 0.5 - 1 mg IVPUSH Q3H PRN PRN Reason: Pain Last Admin: 08/02/20 01:41 Dose: 1 mg Documented by: Clindamycin Phosphate 600 mg/ (Sodium Chloride) 54 mls @ 100 mls/hr IV Q8H [facility] Last Admin: 08/02/20 08:29 Dose: 100 mls/hr Documented by: Lactobacillus Rhamnosus (Lactobacillus Rhamnosus Gg (Probiotic) Cap) 1 cap PO BID [facility] Last Admin: 08/02/20 08:29 Dose: 1 cap Documented by: Ondansetron HCl (Ondansetron 4 Mg/2 Ml Sdv) 4 mg IV Q4H PRN PRN Reason: Nausea/Vomiting Oxycodone HCl (Oxycodone 5 Mg Tab) 10 mg PO TID [facility] Last Admin: 08/02/20 08:29 Dose: 10 mg Documented by: Sodium Chloride (Sodium Chloride 0.9% 10 Ml Syringe) 10 ml FLUSH ASDIRECTED PRN PRN Reason: Keep Vein Open Tamsulosin HCl (Tamsulosin 0.4 Mg Cap.Er) 0.4 mg PO DAILY [facility] Last Admin: 08/02/20 08:29 Dose: 0.4 mg Documented by: Zolpidem Tartrate (Zolpidem 5 Mg Tab) 5 mg PO BEDTIME PRN PRN Reason: Insomnia Discontinued Medications Albuterol/Ipratropium (Albuterol/Ipratropium 3.0-0.5 Mg/3 Ml Neb Soln) 3 ml NEB Q4H [facility] Last Admin: 07/27/20 07:12 Dose: 3 ml Documented by: Albuterol/Ipratropium (Albuterol/Ipratropium 3.0-0.5 Mg/3 Ml Neb Soln) 3 ml INH ONETIME ONE Stop: 07/30/20 07:01 Last Admin: 07/30/20 07:27 Dose: Not Given Documented by: Bupivacaine HCl (Bupivacaine 0.5% 50 Ml Mdv) Confirm Administered Dose 50 ml .ROUTE .STK-MED ONE Stop: 07/30/20 06:50 Last Admin: 07/30/20 11:11 Dose: 10 ml Documented by: Dexamethasone (Dexamethasone 4 Mg/Ml Sdv) Confirm Administered Dose 4 mg .ROUTE .STK-MED ONE Stop: 07/30/20 07:09 Fentanyl (Fentanyl 250 Mcg/5 Ml Sdv) Confirm Administered Dose 250 mcg .ROUTE .STK-MED ONE Stop: 07/30/20 07:08 Glycopyrrolate (Glycopyrrolate 0.2 Mg/Ml 5 Ml Mdv) Confirm Administered Dose 1 mg .ROUTE .STK-MED ONE Stop: 07/30/20 07:09 Piperacillin/Tazobactam/ (Dextrose 3.375 gm/ Premix) 50 mls @ 100 mls/hr IV Q6H [facility] Stop: 07/24/20 18:00 Last Admin: 07/24/20 17:02 Dose: 100 mls/hr Documented by: Sodium Chloride (Normal Saline) 1,000 mls @ 75 mls/hr IV ASDIRECTED [facility] Last Admin: 07/24/20 17:54 Dose: 75 mls/hr Documented by: Vancomycin HCl 1.3 gm/ Sodium (Chloride) 250 mls @ 167 mls/hr IV ONETIME ONE Stop: 07/24/20 18:29 Last Admin: 07/24/20 17:54 Dose: 167 mls/hr Documented by: Vancomycin HCl 1 gm/ Sodium (Chloride) 250 mls @ 167 mls/hr IV Q12H [facility] Last Admin: 07/29/20 04:22 Dose: 167 mls/hr Documented by: Sodium Chloride (Normal Saline) 75 mls @ 3 mls/sec IV ASDIRECTED [facility] Stop: 07/24/20 16:31 Last Admin: 07/24/20 16:54 Dose: 3 mls/sec Documented by: Piperacillin/Tazobactam/ (Dextrose 3.375 gm/ Premix) 50 mls @ 100 mls/hr IV Q6H [facility] Last Admin: 07/28/20 11:27 Dose: 100 mls/hr Documented by: Linezolid (Zyvox) Confirm Administered Dose 300 mls @ as directed .ROUTE .STK- MED ONE Stop: 07/30/20 07:19 Iopamidol (Iopamidol 612 Mg/Ml 100 Ml Bottle) 100 ml IV . DIRECTED [facility] Stop: 07/24/20 16:31 Last Admin: 07/24/20 16:54 Dose: 100 ml Documented by: Lidocaine/Epinephrine (Lidocaine 1% With Epinephrine 1:100,000 50 Ml Mdv) 10 ml INFILT ONETIME ONE Stop: 07/27/20 10:51 Last Admin: 07/27/20 11:43 Dose: 10 ml Documented by: Lidocaine/Epinephrine (Lidocaine 1% With Epinephrine 1:100,000 50 Ml Mdv) Confirm Administered Dose 50 ml .ROUTE .STK-MED ONE Stop: 07/30/20 06:50 Last Admin: 07/30/20 11:11 Dose: 10 ml Documented by: Neostigmine Methylsulfate (Neostigmine Methylsulfate 1 Mg/Ml 5 Ml Syringe) Confirm Administered Dose 5 mg .ROUTE .STK-MED ONE Stop: 07/30/20 07:09 Ondansetron HCl (Ondansetron 4 Mg/2 Ml Sdv) Confirm Administered Dose 4 mg .ROUTE .STK-MED ONE Stop: 07/30/20 07:09 Potassium Chloride (Potassium Chloride 20 Meq Tab.Er) 40 meq PO Q2H [facility] Stop: 07/24/20 18:01 Last Admin: 07/24/20 18:30 Dose: 40 meq Documented by: Propofol (Propofol 200 Mg/20 Ml Sdv) Confirm Administered Dose 200 mg .ROUTE .STK-MED ONE Stop: 07/30/20 07:09 Rocuronium [place] (Rocuronium 50 Mg/5 Ml Vial) Confirm Administered Dose 50 mg .ROUTE .STK-MED ONE Stop: 07/30/20 07:09 Sodium Chloride (Sodium Chloride 0.9% 10 Ml Syringe) 10 ml FLUSH ONETIME ONE Stop: 07/24/20 16:29 Last Admin: 07/24/20 16:54 Dose: 10 ml Documented by: Succinylcholine Chloride (Succinylcholine 200 Mg/10 Ml Mdv) Confirm Administered Dose 200 mg .ROUTE .STK-MED ONE Stop: 07/30/20 07:09 - Exam Quality Assessment: No: Supplemental Oxygen General: Alert, Oriented, Cooperative, No Acute Distress Lungs: Normal Respiratory Effort GI/Abdominal Exam: Soft, No Distention Extremities: No Pedal Edema Skin: Warm, Dry Wound/Incisions: Dressing Dry and Intact, No Drainage Psy/Mental Status: Alert, Normal Affect - Patient Data Result Diagrams: 08/01/20 04:26 08/01/20 04:26 Lee Results Last 24 hrs: Microbiology 07/30/20 08:32 Gram Stain - Final Thigh, Left Wound Culture - Final NO GROWTH AFTER 3 DAYS Anaerobic Culture - Final NO GROWTH AFTER 3 DAYS Sepsis Event Note - Evaluation Sepsis Screening Result: No Definite Risk - Focused Exam Vital Signs: Vital Signs Temp Pulse Resp BP BP Pulse Ox 08/02/20 07:00 36.6 C 66 16 135/67 97 08/02/20 04:00 36.1 C 69 18 116/60 94 L 08/02/20 00:03 36.4 C 76 18 115/99 H 98 - Problem List Review Problem List Initiated/Reviewed/Updated: Yes - Plan Plan:: ASSESSMENT AND PLAN - Left thigh abscess and cellulitis secondary to MRSA-status post more extensive incision and debridement on 07/30. Original culture grew out pansensitive MRSA. Repeat cultures negative so far. No significant drainage or purulence from the one area of concern distal to the debrided area of this morning. 1 additional day of monitoring to ensure no fluid buildup was recommended. -Continue clindamycin, transition to p.o. at the time of discharge -Symptomatic management of pain -Twice Daily wound care -Surgical follow-up per Dr. Arrington Increased dyspnea, history of COPD-stable and doing well. -Continue inhalers and nebulizers Chronic back pain-stable. -Continue home medications Maintenance issues - -DVT prophylaxis-mechanical -GI prophylaxis-not indicated -Nutrition-regular Disposition -I anticipate discharge home after the hospital stay. Wound will need to be reassessed tomorrow morning. Fermín Talbot M.D.
[2020-08-03] MEDS: HYDROmorphone 0.5 MG/0.5 ML Syringe IVPUSH PRN (00:36)
[2020-08-03] MEDS: Acetaminophen 325 MG Tab PO PRN (00:36)
[2020-08-03] MEDS: Albuterol/Ipratropium 3.0-0.5 MG/3 ML Neb Soln NEB SCH ×2 (07:32→11:19)
[2020-08-03] MEDS: Ferrous Sulfate 325 MG Tab PO SCH (07:49)
[2020-08-03] MEDS: Lactobacillus Rhamnosus GG (Probiotic) Cap PO SCH (08:01)
[2020-08-03] MEDS: Tamsulosin 0.4 MG Cap.ER PO SCH (08:01)
[2020-08-03] MEDS: Ascorbic Acid 500 MG Tab PO SCH (08:01)
[2020-08-03] MEDS: Finasteride 5 MG Tab PO SCH (08:01)
[2020-08-03] MEDS: oxyCODONE 5 MG Tab PO SCH (09:23)
--- NOTE | 2020-08-03 10:36 | PN ---
DATE OF SERVICE: 08/03/2020 SUBJECTIVE: Brian states he is going home today. Vital signs have been stable. Pain is controlled. Oral intake adequate, output adequate. Last bowel movement was 08/03/2020. REVIEW OF SYSTEMS: Remainder of review of systems negative for any pertinent positives and negatives. OBJECTIVE: GENERAL: Brian Is a pleasant 65-year-old male. VITAL SIGNS: TPR is 97.6, 70, and 18. Blood pressure 147/80. O2 is 92% on room air. HEENT: Negative. NECK: Supple. HEART: Regular rate and rhythm. LUNGS: Extensive wheezing, which nursing staff states is normal for him. He is not short of breath. EXTREMITIES: Left thigh incision examined by Khadar Arrington MD. He has the dressing removed. Incisions healing well. ASSESSMENT: Incision and drainage of decubitus ulcer 6 x 4 cm for necrotizing infection of left anterior lateral thigh with associated drainage of abscess. Date of procedure 07/30/2020. Surgeon: Khadar Arrington MD. PLAN: Continue dressing changes b.i.d. To be discharged by hospitalist. Tammy Chandra PA-C /[phone]
--- NOTE | 2020-08-03 12:13 | PCM.DCSUM1 ---
Discharge Summary - Hospital Course Brief History: Mr. Eli is a 65-year-old gentleman who was admitted as a direct admission from the clinic for management and evaluation of left thigh cellulitis and possible abscess. - Discharge Data Discharge Date: 08/03/20 Discharge Disposition: Home, Self-Care 01 Condition: Fair - Referral to Home Health Primary Care Physician: REJI Loza - Discharge Diagnosis/Problem(s) (1) Cellulitis and abscess of left leg SNOMED Code(s): 477667268 ICD Code: L03.116 - CELLULITIS OF LEFT LOWER LIMB; L02.416 - CUTANEOUS ABSCESS OF LEFT LOWER LIMB Status: Acute Current Visit: Yes (2) Status post incision and drainage SNOMED Code(s): 275374067, 832627716 ICD Code: Z98.890 - OTHER SPECIFIED POSTPROCEDURAL STATES Status: Acute Current Visit: Yes (3) MRSA (methicillin resistant staph aureus) culture positive SNOMED Code(s): 634999085 ICD Code: Z22.322 - CARRIER OR SUSPECTED CARRIER OF METHICILLIN RESIS STAPH Status: Acute Current Visit: Yes - Patient Summary/Data Consults: Consultations 07/29/20 12:34 Consult to Physician [CONS] Routine Consulting Provider: Khadar Arrington Call Completed to Consulting Physician: Yes Reason for Consult: left thigh abscess Person Notified: LUNA Date Notified: 07/29/20 Special Instructions: I&D in am in OR 07/31/20 06:57 Consult to Home Health [CONS] Routine Comment: Physician Instructions: plan discharge Monday - 08/03/2020 Reason for Consult: Open thigh incision Special Instructions: Dressing changes bid 08/01/20 08:20 PT Evaluation and Treatment [CONS] Routine Please Evaluate and Treat. PT Reason for Consult: Post op Ortho Surgery Pending Discharge: Yes Discharge Disposition: Home Special Instructions: S/P recent rotator cuff surgery. This query below is only for informational purposes and is not editable. Admission Diagnosis/Problem: Abscess Hospital Course: The patient is a 65-year-old male who was admitted directly from the surgeon's office because of left thigh cellulitis/abscess. He indicates approximately 6 days prior to admission he developed what appeared to be irritation of his left lateral thigh. He states it resembled a spider bite. He states that he saw his primary care physician or provider 3 days prior to admission who referred him to the surgeon for further evaluation. On his day of July 24, 2020 the patient was seen by the surgeon referred for direct admission. The patient indicates that there is been green discharge from the nidus of the infection. He indicates that there is spreading erythema both proximally and distally of the left thigh. He admits to onset of fever and rigors. Denies nausea, vomiting, cough, wheeze, abdominal pain, diarrhea, myalgia, dyspnea. On admission blood cultures were obtained and he was started on IV antibiotic therapy with vancomycin and Zosyn. CT scan of the thigh was obtained showing evidence of cellulitis, with no obvious abscess identified at that time. Over the next few days there was ongoing evidence of infection. He was seen and evaluated by Dr. Smith and an I&D was performed with fairly minimal drainage. Because of ongoing evidence of infection 2 days later he was seen and evaluated by Dr. Arrington and a more extensive debridement was performed at that time. Since the second debridement he is shown progressive improvement with normalization of his white blood cell count and improvement in infection in the thigh. He did grow out MRSA from wound cultures. He was transitioned to IV antibiotic therapy with clindamycin. He will be discharged home with additional week of oral antibiotic therapy with clindamycin. Per Dr. Arrington's instructions the wound will be dressed twice daily. Follow-up appointment will be scheduled with Dr. Arrington for September 07. Activity will be as tolerated and he will resume his usual diet. - Patient Instructions Diet: Usual Diet as Tolerated, Drink 8-10+ Glasses/Day Activity: As Tolerated Driving: Do Not Drive (for 1 ) Showering/Bathing: May Shower, No Tub Bathing/Swimming (week ) Wound/Incision Care: Keep Operative Site/Wound Site Clean and Dry Notify Provider of: Fever, Increased Pain, Swelling and Redness, Drainage, Nausea and/or Vomiting Other/Special Instructions: Change Dressing on left upper thigh twice a day. Please schedule follow-up appointment with Dr. Arrington for August 07. - Discharge Plan *PRESCRIPTION DRUG MONITORING PROGRAM REVIEWED*: Not Applicable *COPY OF PRESCRIPTION DRUG MONITORING REPORT IN PATIENT [place]: Not Applicable Prescriptions/Med Rec: Clindamycin HCl 300 mg PO QID #28 capsule Home Medications: Home Meds Cyclobenzaprine [Flexeril] 5 mg PO TID PRN 11/12/18 [History] Finasteride [Proscar] 5 mg PO DAILY 11/12/18 [History] Ibuprofen 800 mg PO TID PRN 11/12/18 [History] Tamsulosin HCl [Flomax] 0.4 mg PO DAILY 11/12/18 [History] Zolpidem [Ambien] 5 mg PO DAILY PRN 11/12/18 [History] oxyCODONE 10 mg PO TID 11/12/18 [History] Albuterol [Proventil HFA] 2 puff INH Q4H PRN 07/23/20 [History] Albuterol [Proventil Neb Soln] 3 ml INH Q4H PRN 07/23/20 [History] Clindamycin HCl 300 mg PO QID #28 capsule 08/03/20 [Rx] Patient Handouts: Chronic Obstructive Pulmonary Disease, [id number], Cellulitis, Adult, [id number] Referrals: Khadar Arrington MD [Physician] - - Discharge Summary/Plan Comment DC Time >30 min.: No - Patient Data Vitals - Most Recent: Last Vital Signs Temp 97.6 F 08/03/20 07:45 Pulse 71 08/03/20 07:45 Resp 18 08/03/20 07:45 BP 120/66 08/03/20 07:45 Pulse Ox 94 L 08/03/20 07:45 Weight - Most Recent: 143 lb 15.989 oz I&O - Last 24 hours: Intake & Output 08/02/20 08/03/20 08/03/20 22:59 06:59 14:59 Intake Total 50 54 Output Total 200 Balance 50 -200 54 Med Orders - Current: Current Medications Acetaminophen (Acetaminophen 325 Mg Tab) 650 mg PO Q4H PRN PRN Reason: Pain (Mild 1-3)/fever Last Admin: 08/03/20 00:36 Dose: 650 mg Documented by: Albuterol (Albuterol 0.083% 2.5 Mg/3 Ml Neb Soln) 2.5 mg INH Q4H PRN PRN Reason: Dyspnea Last Admin: 08/01/20 20:28 Dose: 2.5 mg Documented by: Albuterol/Ipratropium (Albuterol/Ipratropium 3.0-0.5 Mg/3 Ml Neb Soln) 3 ml NEB QIDRT [facility] Last Admin: 08/03/20 11:19 Dose: Not Given Documented by: Ascorbic Acid (Ascorbic Acid 500 Mg Tab) 500 mg PO DAILY [facility] Last Admin: 08/03/20 08:01 Dose: 500 mg Documented by: Calcium Carbonate/Glycine (Calcium Carbonate 500 Mg Tab.Chew) 1,000 mg PO Q2H PRN PRN Reason: Indigestion Last Admin: 07/30/20 19:41 Dose: 1,000 mg Documented by: Calcium Carbonate/Glycine (Calcium Carbonate 500 Mg Tab.Chew) 500 mg PO Q2H PRN PRN Reason: Indigestion Cyclobenzaprine HCl (Cyclobenzaprine 10 Mg Tab) 5 mg PO TID PRN PRN Reason: Spasms Last Admin: 07/31/20 16:33 Dose: 5 mg Documented by: Ferrous Sulfate (Ferrous Sulfate 325 Mg Tab) 325 mg PO BIDMEALS [facility] Last Admin: 08/03/20 07:49 Dose: 325 mg Documented by: Finasteride (Finasteride 5 Mg Tab) 5 mg PO DAILY [facility] Last Admin: 08/03/20 08:01 Dose: 5 mg Documented by: Hydromorphone HCl (Hydromorphone 0.5 Mg/0.5 Ml Syringe) 0.5 - 1 mg IVPUSH Q3H PRN PRN Reason: Pain Last Admin: 08/03/20 00:36 Dose: 1 mg Documented by: Clindamycin Phosphate 600 mg/ (Sodium Chloride) 54 mls @ 100 mls/hr IV Q8H [facility] Last Admin: 08/03/20 08:01 Dose: 100 mls/hr Documented by: Lactobacillus Rhamnosus (Lactobacillus Rhamnosus Gg (Probiotic) Cap) 1 cap PO BID [facility] Last Admin: 08/03/20 08:01 Dose: 1 cap Documented by: Ondansetron HCl (Ondansetron 4 Mg/2 Ml Sdv) 4 mg IV Q4H PRN PRN Reason: Nausea/Vomiting Oxycodone HCl (Oxycodone 5 Mg Tab) 10 mg PO TID [facility] Last Admin: 08/03/20 09:23 Dose: 10 mg Documented by: Sodium Chloride (Sodium Chloride 0.9% 10 Ml Syringe) 10 ml FLUSH ASDIRECTED PRN PRN Reason: Keep Vein Open Tamsulosin HCl (Tamsulosin 0.4 Mg Cap.Er) 0.4 mg PO DAILY [facility] Last Admin: 08/03/20 08:01 Dose: 0.4 mg Documented by: Zolpidem Tartrate (Zolpidem 5 Mg Tab) 5 mg PO BEDTIME PRN PRN Reason: Insomnia Last Admin: 08/03/20 00:36 Dose: 5 mg Documented by: Discontinued Medications Albuterol/Ipratropium (Albuterol/Ipratropium 3.0-0.5 Mg/3 Ml Neb Soln) 3 ml NEB Q4H [facility] Last Admin: 07/27/20 07:12 Dose: 3 ml Documented by: Albuterol/Ipratropium (Albuterol/Ipratropium 3.0-0.5 Mg/3 Ml Neb Soln) 3 ml INH ONETIME ONE Stop: 07/30/20 07:01 Last Admin: 07/30/20 07:27 Dose: Not Given Documented by: Bupivacaine HCl (Bupivacaine 0.5% 50 Ml Mdv) Confirm Administered Dose 50 ml .ROUTE .STK-MED ONE Stop: 07/30/20 06:50 Last Admin: 07/30/20 11:11 Dose: 10 ml Documented by: Dexamethasone (Dexamethasone 4 Mg/Ml Sdv) Confirm Administered Dose 4 mg .ROUTE .STK-MED ONE Stop: 07/30/20 07:09 Fentanyl (Fentanyl 250 Mcg/5 Ml Sdv) Confirm Administered Dose 250 mcg .ROUTE .STK-MED ONE Stop: 07/30/20 07:08 Glycopyrrolate (Glycopyrrolate 0.2 Mg/Ml 5 Ml Mdv) Confirm Administered Dose 1 mg .ROUTE .STK-MED ONE Stop: 07/30/20 07:09 Piperacillin/Tazobactam/ (Dextrose 3.375 gm/ Premix) 50 mls @ 100 mls/hr IV Q6H [facility] Stop: 07/24/20 18:00 Last Admin: 07/24/20 17:02 Dose: 100 mls/hr Documented by: Sodium Chloride (Normal Saline) 1,000 mls @ 75 mls/hr IV ASDIRECTED [facility] Last Admin: 07/24/20 17:54 Dose: 75 mls/hr Documented by: Vancomycin HCl 1.3 gm/ Sodium (Chloride) 250 mls @ 167 mls/hr IV ONETIME ONE Stop: 07/24/20 18:29 Last Admin: 07/24/20 17:54 Dose: 167 mls/hr Documented by: Vancomycin HCl 1 gm/ Sodium (Chloride) 250 mls @ 167 mls/hr IV Q12H [facility] Last Admin: 07/29/20 04:22 Dose: 167 mls/hr Documented by: Sodium Chloride (Normal Saline) 75 mls @ 3 mls/sec IV ASDIRECTED [facility] Stop: 07/24/20 16:31 Last Admin: 07/24/20 16:54 Dose: 3 mls/sec Documented by: Piperacillin/Tazobactam/ (Dextrose 3.375 gm/ Premix) 50 mls @ 100 mls/hr IV Q6H [facility] Last Admin: 07/28/20 11:27 Dose: 100 mls/hr Documented by: Linezolid (Zyvox) Confirm Administered Dose 300 mls @ as directed .ROUTE .STK- MED ONE Stop: 07/30/20 07:19 Iopamidol (Iopamidol 612 Mg/Ml 100 Ml Bottle) 100 ml IV . DIRECTED [facility] Stop: 07/24/20 16:31 Last Admin: 07/24/20 16:54 Dose: 100 ml Documented by: Lidocaine/Epinephrine (Lidocaine 1% With Epinephrine 1:100,000 50 Ml Mdv) 10 ml INFILT ONETIME ONE Stop: 07/27/20 10:51 Last Admin: 07/27/20 11:43 Dose: 10 ml Documented by: Lidocaine/Epinephrine (Lidocaine 1% With Epinephrine 1:100,000 50 Ml Mdv) Confirm Administered Dose 50 ml .ROUTE .STK-MED ONE Stop: 07/30/20 06:50 Last Admin: 07/30/20 11:11 Dose: 10 ml Documented by: Neostigmine Methylsulfate (Neostigmine Methylsulfate 1 Mg/Ml 5 Ml Syringe) Confirm Administered Dose 5 mg .ROUTE .STK-MED ONE Stop: 07/30/20 07:09 Ondansetron HCl (Ondansetron 4 Mg/2 Ml Sdv) Confirm Administered Dose 4 mg .ROUTE .STK-MED ONE Stop: 07/30/20 07:09 Potassium Chloride (Potassium Chloride 20 Meq Tab.Er) 40 meq PO Q2H [facility] Stop: 07/24/20 18:01 Last Admin: 07/24/20 18:30 Dose: 40 meq Documented by: Propofol (Propofol 200 Mg/20 Ml Sdv) Confirm Administered Dose 200 mg .ROUTE .STK-MED ONE Stop: 07/30/20 07:09 Rocuronium Carter (Rocuronium 50 Mg/5 Ml Vial) Confirm Administered Dose 50 mg .ROUTE .[employer]-MED ONE Stop: 07/30/20 07:09 Sodium Chloride (Sodium Chloride 0.9% 10 Ml Syringe) 10 ml FLUSH ONETIME ONE Stop: 07/24/20 16:29 Last Admin: 07/24/20 16:54 Dose: 10 ml Documented by: Succinylcholine Chloride (Succinylcholine 200 Mg/10 Ml Mdv) Confirm Administered Dose 200 mg .ROUTE .RVE.SOL - [employer] ONE Stop: 07/30/20 07:09 - Exam General: Reports: Alert, Oriented, Cooperative, Mild Distress Lungs: Reports: Clear to Auscultation, Normal Respiratory Effort, Decreased Breath Sounds Cardiovascular: Reports: Regular Rate, Regular Rhythm, No Murmurs GI/Abdominal Exam: Soft, Non-Tender, No Organomegaly, No Distention Skin: Reports: Other (Open wound left anterior thigh with no ongoing evidence of active infection)
--- NOTE | 2020-08-04 12:51 | PN ---
DATE OF SERVICE: 08/02/2020 The patient has been afebrile with stable vital signs. He did have some drainage from the area inferior to the open wound today. This had been somewhat reddened and edematous, it is much better today. I think we would probably keep him here today, and see if that reaccumulates, and if it does, we will reconsider surgical drainage of that area. Otherwise, continue with local wound care and present antibiotics. Khadar Arrington MD /[id number]
--- NOTE | 2020-08-04 14:50 | PN ---
DATE OF SERVICE: 08/01/2020 The patient has been afebrile with stable vital signs. No major problems were noted. At this point, it looks like the patient would like to be discharged today. Assuming that happens, we will set him with dressing changes and we will see the patient back this coming Monday, i.e., in five days. Khadar Arrington MD /[id number]
--- NOTE | 2020-08-28 13:44 | OR ---
DATE OF PROCEDURE: 07/30/2020 SURGEON: Khadar Arrington MD PREOPERATIVE DIAGNOSIS: Include a drained abscess with surrounding cellulitis, left anterior thigh. POSTOPERATIVE DIAGNOSIS: Include a drained abscess with surrounding cellulitis, left anterior thigh. OPERATIVE PROCEDURES: 1. Incision and drainage of abscess, left anterior thigh ([id number]). 2. Debridement of necrotizing infection, left anterior thigh ([id number], [id number]). ANESTHESIA: General. INDICATIONS FOR PROCEDURE: A 65-year-old male presenting with soft tissue infection of the left anterior thigh. This was partially drained per earlier, but he continues to have quite a bit in the way of surrounding cellulitis and purulent drainage including a small opening. Plan is to proceed with a wider debridement and drainage of the area of infection. Potential risks including further bleeding and infection were reviewed with the patient, and he wishes to proceed. DETAILS OF PROCEDURE: The patient was taken to the operating room and placed in a supine position. After general endotracheal anesthesia was induced, the left anterior thigh was prepped and draped. Through the small opening, a probe was placed which outlined the area of the abscess. A vertically oriented elliptical incision was then made over the edges of the abscess and carried down through the skin and subcutaneous tissue. Debridement of the skin, subcutaneous tissue, and fascia was then undertaken after initial drainage of the purulent material. Additional cultures were obtained. All of the grossly necrotic tissue was then debrided at this point which included a layer of the muscular fascia, and at that point, the procedure was concluded with adequate hemostasis having been obtained with electrocautery. The area of open wound at this point now was 7.7 x 5 cm with the long axis in a vertical orientation. The wound was packed with iodoform gauze and a dressing applied. PLAN: Plan will be to proceed with inspection of the wound following debridement of any additional necrotic material that may accumulate. Khadar Arrington MD /[id number]
== END 2020-08-03 12:50 | disposition home or self-care (01) | DRG 571 ==
LOC: JP.MS 14:15 → OBSVTOIN 14:53
PROVIDERS: ADMIT Internal Medicine; ATTEND Hospitalist
PROC: 0H9JXZZ Drainage of Left Upper Leg Skin, External Approach (ICD-10-PCS; principal; 2020-07-27)
PROC: 0JBM0ZZ Excision of Left Upper Leg Subcutaneous Tissue and Fascia, Open Approach (ICD-10-PCS; 2020-07-30)
DX: L03.116 Cellulitis of left lower limb (principal); I96 Gangrene, not elsewhere classified; L02.416 Cutaneous abscess of left lower limb; B95.62 Methicillin resistant Staphylococcus aureus infection as the cause of diseases classified elsewhere; G47.30 Sleep apnea, unspecified; N40.0 Benign prostatic hyperplasia without lower urinary tract symptoms; G89.29 Other chronic pain; M62.838 Other muscle spasm; J44.9 Chronic obstructive pulmonary disease, unspecified; K21.9 Gastro-esophageal reflux disease without esophagitis; L89.899 Pressure ulcer of other site, unspecified stage; M54.9 Dorsalgia, unspecified; G62.9 Polyneuropathy, unspecified; J30.2 Other seasonal allergic rhinitis; E87.6 Hypokalemia; D50.9 Iron deficiency anemia, unspecified; R74.8 Abnormal levels of other serum enzymes; Z79.899 Other long term (current) drug therapy; Z90.49 Acquired absence of other specified parts of digestive tract; Z98.890 Other specified postprocedural states; Z98.1 Arthrodesis status; Z87.891 Personal history of nicotine dependence
CPT/HCPCS: 36415; 71046; 71046-26; 71250; 71250-26; 73701-LT; 80048; 80053; 80202; 82270; 82272; 82565; 82728; 83550; 83735; 85025; 85027; 85610; 85730; 87070; 87075; 87077; 87186; 87205; 88304; 94640; 97110-GP; 97161-GP; 99221; 99231; 99238; A9270-GY; J0330; J1100; J1170; J2020; J2405; J2543; J2704; J2710; J3010; J3370; J3490; J7030; J7050; J7620-GY; Q9967; U0002

== ENCOUNTER → 2022-01-07 | Day surgery (SDC) | payer MEDICARE, MEDICAID ==
[~2022-01-07] MED LIST: Albuterol/Ipratropium 3.0-0.5 MG/3 ML Neb Soln NEB ONE; Dextrose 5%-Lactated Ringers 1,000 ML IV SCH; Pantoprazole 40 MG Vial IVPUSH ONE; Pantoprazole 40 MG Vial ONE; Propofol 200 MG/20 ML SDV ONE; fentaNYL 100 MCG/2 ML SDV ONE
== END ==
LOC: JP.SDS 06:00
PROVIDERS: ATTEND Surgery
DX: K31.89 Other diseases of stomach and duodenum (principal); K25.9 Gastric ulcer, unspecified as acute or chronic, without hemorrhage or perforation; K29.80 Duodenitis without bleeding; K29.70 Gastritis, unspecified, without bleeding; K21.9 Gastro-esophageal reflux disease without esophagitis; F17.200 Nicotine dependence, unspecified, uncomplicated; J44.9 Chronic obstructive pulmonary disease, unspecified; Z20.822 Contact with and (suspected) exposure to COVID-19; Z79.899 Other long term (current) drug therapy
CPT/HCPCS: 43239; 88305; 88341; 88342; 88365; C1726; C9113; J2704; J3010; J7121; U0002; J7620

== ENCOUNTER 2022-01-25 06:00 | Day surgery (SDC) | payer MEDICARE, MEDICAID ==
[2022-01-25] MEDS ORDERED: Albuterol/Ipratropium 3.0-0.5 MG/3 ML Neb Soln NEB ONE (06:30)
[2022-01-25] MEDS ORDERED: Dextrose 5%-Lactated Ringers 1,000 ML IV SCH (06:30)
[2022-01-25 06:56] LABS: ESTIMATED GFR 95 mL/min (>60)
[2022-01-25] MEDS ORDERED: Midazolam 1 MG/ML 2 ML SDV ONE (07:19)
[2022-01-25] MEDS ORDERED: Propofol 200 MG/20 ML SDV ONE ×2 (07:19→10:03)
== END 2022-01-25 12:31 | disposition home or self-care (01) ==
LOC: JP.SDS 06:00
PROVIDERS: ATTEND Surgery
DX: Z12.11 Encounter for screening for malignant neoplasm of colon (principal); K25.9 Gastric ulcer, unspecified as acute or chronic, without hemorrhage or perforation; K44.9 Diaphragmatic hernia without obstruction or gangrene; F17.200 Nicotine dependence, unspecified, uncomplicated; J44.9 Chronic obstructive pulmonary disease, unspecified; Z86.010 Personal history of colon polyps; Z79.899 Other long term (current) drug therapy
CPT/HCPCS: 36415; 43239; 80053; 82378; 83735; 83880; 84100; 85027; 88305; 88342; 94640; G0105; J2250; J2704; J7121; J7620

== ENCOUNTER 2022-02-07 06:11 | Day surgery (SDC) | payer MEDICARE, MEDICAID ==
[2022-02-07] MEDS ORDERED: Dextrose 5%-Lactated Ringers 1,000 ML IV SCH (07:00)
[2022-02-07] MEDS ORDERED: Propofol 200 MG/20 ML SDV ONE (08:09)
[2022-02-07] MEDS ORDERED: Midazolam 1 MG/ML 2 ML SDV ONE (08:51)
[2022-02-07] MEDS ORDERED: fentaNYL 50 MCG/ML SDV ONE (08:51)
== END 2022-02-07 12:20 | disposition home or self-care (01) ==
LOC: JP.SDS 06:11
PROVIDERS: ATTEND Surgery
DX: K25.3 Acute gastric ulcer without hemorrhage or perforation (principal); K25.7 Chronic gastric ulcer without hemorrhage or perforation; K31.A19 Gastric intestinal metaplasia without dysplasia, unspecified site; K29.80 Duodenitis without bleeding; K21.00 Gastro-esophageal reflux disease with esophagitis, without bleeding; K29.70 Gastritis, unspecified, without bleeding; K44.9 Diaphragmatic hernia without obstruction or gangrene
CPT/HCPCS: 43239; 87081; 88305; 88341; 88342; J2250; J2704; J3010; J7121

== ENCOUNTER 2022-02-15 11:45 | Inpatient (IN) | payer MEDICARE, MEDICAID ==
[~2022-02-15 11:45] MED LIST changes: -Albuterol/Ipratropium 3.0-0.5 MG/3 ML Neb Soln NEB ONE; -Dextrose 5%-Lactated Ringers 1,000 ML IV SCH; +Ketamine 17 MG in Sodium Chloride 0.9% 19.83 ML IV SCH; +Ketamine 500 MG/5 ML MDV IV SCH; -Pantoprazole 40 MG Vial IVPUSH ONE; -Pantoprazole 40 MG Vial ONE; -Propofol 200 MG/20 ML SDV ONE; -fentaNYL 100 MCG/2 ML SDV ONE
[2022-02-22] MEDS ORDERED: Celecoxib 200 MG Cap PO ONE (08:00)
[2022-02-22] MEDS ORDERED: Acetaminophen 500 MG Tab PO ONE (08:00)
[2022-02-22] MEDS ORDERED: Scopolamine 1.5 MG Transdermal Patch TRDERM SCH (08:00)
[2022-02-22] MEDS ORDERED: fentaNYL 250 MCG/5 ML SDV ONE (08:03)
[2022-02-22] MEDS ORDERED: Rocuronium 50 MG/5 ML Vial ONE (08:04)
[2022-02-22] MEDS ORDERED: Dexamethasone 4 MG/ML SDV ONE (08:04)
[2022-02-22] MEDS ORDERED: Neostigmine Methylsulfate 1 MG/ML 5 ML Syringe ONE (08:04)
[2022-02-22] MEDS ORDERED: Glycopyrrolate 0.2 MG/ML 5 ML MDV ONE (08:04)
[2022-02-22] MEDS ORDERED: Ondansetron 4 MG/2 ML SDV ONE (08:04)
[2022-02-22] MEDS ORDERED: Propofol 200 MG/20 ML SDV ONE (08:04)
[2022-02-22] MEDS ORDERED: Succinylcholine 200 MG/10 ML MDV ONE (08:05)
[2022-02-22] MEDS ORDERED: Lactated Ringers 1,000 ML ONE (08:07)
[2022-02-22] MEDS ORDERED: Dextrose 5%-Lactated Ringers 1,000 ML IV SCH (08:30)
[2022-02-22] MEDS ORDERED: Albuterol/Ipratropium 3.0-0.5 MG/3 ML Neb Soln NEB ONE (09:00)
[2022-02-22 09:04] LABS: ESTIMATED GFR 98 mL/min (>60)
[2022-02-22] MEDS ORDERED: cefOXitin 2 GM in Sodium Chloride 0.9% 50 ML IV ONE (09:30)
[2022-02-22] MEDS ORDERED: Ketamine 500 MG/5 ML MDV IV SCH (09:45)
[2022-02-22] MEDS ORDERED: Ketamine 17 MG in Sodium Chloride 0.9% 19.83 ML IV SCH (09:45)
== END 2022-02-22 09:50 | disposition home or self-care (01) | DRG 951 ==
LOC: JP.SDSSCHI 02-22 08:05
PROVIDERS: ADMIT Surgery; ATTEND Surgery
DX: Z53.9 Procedure and treatment not carried out, unspecified reason (principal)
CPT/HCPCS: 36415; 80053; 82378; 83735; 83880; 84100; 85027; J0330; J1100; J2405; J2704; J2710; J3010; J3490; J7120

== ENCOUNTER 2022-03-22 06:03 | Day surgery (SDC) | payer MEDICARE, MEDICAID ==
[2022-03-22] MEDS ORDERED: Albuterol/Ipratropium 3.0-0.5 MG/3 ML Neb Soln NEB ONE (06:20)
[2022-03-22] MEDS ORDERED: Dextrose 5%-Lactated Ringers 1,000 ML IV SCH (06:20)
[2022-03-22] MEDS ORDERED: Propofol 200 MG/20 ML SDV ONE (07:07)
[2022-03-22] MEDS ORDERED: fentaNYL 50 MCG/ML SDV ONE (07:07)
[2022-03-22] MEDS ORDERED: Midazolam 1 MG/ML 2 ML SDV ONE (07:07)
== END 2022-03-22 09:46 | disposition home or self-care (01) ==
LOC: JP.SDS 06:03
PROVIDERS: ATTEND Surgery
DX: K29.00 Acute gastritis without bleeding (principal); K29.80 Duodenitis without bleeding; K21.9 Gastro-esophageal reflux disease without esophagitis; Z79.899 Other long term (current) drug therapy
CPT/HCPCS: 43239; 87081; 94640; J2250; J2704; J3010; J7121; J7620

== ENCOUNTER 2022-05-17 07:33 | Day surgery (SDC) | payer MEDICARE, MEDICAID ==
[2022-05-17] MEDS ORDERED: Dextrose 5%-Lactated Ringers 1,000 ML IV SCH (08:00)
[2022-05-17] MEDS ORDERED: Propofol 200 MG/20 ML SDV ONE (09:50)
[2022-05-17] MEDS ORDERED: Midazolam 1 MG/ML 2 ML SDV ONE (09:50)
[2022-05-17] MEDS ORDERED: fentaNYL 50 MCG/ML SDV ONE (09:50)
[2022-05-19 08:15] LABS: H. PYLORI BREATH TEST Negative (Negative)
== END 2022-05-17 12:05 | disposition home or self-care (01) ==
LOC: JP.SDS 07:33
PROVIDERS: ATTEND Surgery
DX: K25.9 Gastric ulcer, unspecified as acute or chronic, without hemorrhage or perforation (principal); K29.70 Gastritis, unspecified, without bleeding; K29.80 Duodenitis without bleeding; J44.9 Chronic obstructive pulmonary disease, unspecified; K21.9 Gastro-esophageal reflux disease without esophagitis; F11.11 Opioid abuse, in remission
CPT/HCPCS: 83013; 87081; J2250; J2704; J3010; J7121

== ENCOUNTER 2024-01-02 18:46 | Emergency (ER) | payer OTHER, MEDICARE ==
[2024-01-02] MEDS: Lidocaine 4% 1 each Patch TOP STA (20:58)
[2024-01-02] MEDS: Ketorolac 30 MG/ML SDV IM ONE (21:34)
== END 2024-01-02 22:00 | disposition home or self-care (01) ==
LOC: JP.ED 18:46
DX: M54.50 Low back pain, unspecified (principal); F17.210 Nicotine dependence, cigarettes, uncomplicated; J44.9 Chronic obstructive pulmonary disease, unspecified; K21.9 Gastro-esophageal reflux disease without esophagitis; Z90.49 Acquired absence of other specified parts of digestive tract; Z79.899 Other long term (current) drug therapy; Z79.891 Long term (current) use of opiate analgesic
CPT/HCPCS: 72100; 73502; 96372; 99283; J1885

== ENCOUNTER 2024-06-13 07:32 | Day surgery (SDC) | payer MEDICARE, OTHER ==
[2024-06-13] MEDS: Lactated Ringers 1,000 ML IV SCH (08:21)
[2024-06-13] MEDS ORDERED: Propofol 200 MG/20 ML SDV ONE (08:28)
[2024-06-13] MEDS ORDERED: fentaNYL 100 MCG/2 ML SDV ONE (08:29)
== END 2024-06-13 11:30 | disposition home or self-care (01) ==
LOC: JP.SDS 07:32
PROVIDERS: ATTEND Surgery
DX: K22.70 Barrett's esophagus without dysplasia (principal); K22.89 Other specified disease of esophagus; J44.9 Chronic obstructive pulmonary disease, unspecified
CPT/HCPCS: 00731-QZ; 88305; J2704; J3010; J7120

== ENCOUNTER 2025-02-05 09:57 | Day surgery (SDC) | payer OTHER ==
[2025-02-05] MEDS ORDERED: Midazolam 1 MG/ML 2 ML SDV ONE (10:20)
[2025-02-05] MEDS ORDERED: fentaNYL 50 MCG/ML SDV ONE (10:20)
[2025-02-05] MEDS ORDERED: Propofol 200 MG/20 ML SDV ONE (10:20)
[2025-02-05] MEDS: Lactated Ringers 1,000 ML IV SCH (10:37)
== END 2025-02-05 13:35 | disposition home or self-care (01) ==
LOC: JP.SDS 09:57
PROVIDERS: ATTEND Surgery
DX: K29.50 Unspecified chronic gastritis without bleeding (principal); K25.9 Gastric ulcer, unspecified as acute or chronic, without hemorrhage or perforation; Z79.899 Other long term (current) drug therapy
CPT/HCPCS: 00731; 43239; J2250; J2704; J3010; J7120